=== PATIENT | male | born 1965 | race Caucasian/White ===

== ENCOUNTER 2025-05-03 09:34 | Inpatient (IN) ==
--- NOTE | 2025-05-03 09:40 | Emergency Department Note ---
Impression & Plan Unstable angina, Incidental pulmonary nodule ED Provider Note NAME: BEHZAD FULTON CREDIT AGE: 59 SEX: M : 1965 ARRIVES VIA: Ambulance INFORMANT: Patient, EMS ED PROVIDER(S): Jesse Donato DO CHIEF COMPLAINT: Chest pain HPI: This is a 59-year-old male with the PMHx of CAD s/p PCI (2019) and prior tobacco use disorder presenting to [facility] for further evaluation of chest pain. Patient is accompanied by EMS who provide additional history. patient developed chest pain while driving from [place] this morning. 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 Patient states that he has not had significant chest pain since his last cardiac events. He states this feels very similar. Patient reports central crushing chest pain associated with dyspnea. Started around 0700 and has continued to worsen. EMS reports load ASA, Zofran and morphine prior to arrival. SL NTG had not improved the pain. He was diaphoretic on arrival. Prehospital providers provided load of aspirin as well as sublingual nitroglycerin. His pain continues. Patient states that he had 2 stents placed in 2019 at a hospital in [place]. Patient is compliant with his medications. He denies daily aspirin but does report Plavix use. Patient denies any radiation to the back. His pain does radiate into the left upper extremity. They deny fever or chills. No cough or congestion. Denies chest palpitations. They deny abdominal pain, nausea and vomiting. No urinary complaints. No recent changes in bowel movements. Patient denies recent changes in medications or OTC supplements. Patient offers no other complaints, today. ADDITIONAL HISTORY OBTAINED: Per HPI Chronic Medical/Social Conditions Affecting Care: Per HPI PAST MEDICAL HISTORY: See Below PAST SURGICAL HISTORY: See Below FAMILY HISTORY: See Below SOCIAL HISTORY: See Below HOME MEDICATIONS: See Below ALLERGIES: See Below VITALS: See Below PHYSICAL EXAMINATION: GENERAL: Sitting up in bed, alert, well appearing, well nourished, no distress, non-toxic EYE EXAM: normal conjunctiva. PERRL and EOM's grossly intact. OROPHARYNX: no exudate, no erythema, lips, buccal mucosa, and tongue normal and mucous membranes are moist NECK: supple, no nuchal rigidity, no adenopathy, non-tender LUNGS: Clear to auscultation. Normal chest wall mechanics HEART: no murmurs, regular rate, regular rhythm, Patient has 2+ distal pulses in all 4 extremities. Warm and well-perfused extremities. ABDOMEN: abdomen soft, non-tender, normo-active bowel sounds, no masses, no rebound or guarding. BACK: Back is symmetrical on inspection and there is no deformity, no midline tenderness, no CVA tenderness. SKIN: no rashes and no bruising UPPER EXTREMITIES: upper extremities are grossly normal. LOWER EXTREMITIES: There is some swelling and edema to the left lower extremity but he reports that a few months ago he had a fracture in his ankle. He reports the swelling has been ongoing and has not changed. NEURO EXAM: Normal sensorium, GCS 15, normal speech, no gross weakness of arms, no gross weakness of legs. MEDICAL DECISION MAKING: Differential diagnoses includes but not limited to unstable angina, ACS, dysrhythmia, pericardial effusion, pericarditis, pulmonary embolism, aortic dissection, hepatobiliary disease, pancreatitis, pneumonia, pneumothorax In summary, this is a 59 year old male who presented with chest pain. Differential as above. Nursing notes and pertinent past medical records reviewed. Vital signs reviewed and the patient is borderline hypotensive and hypoxic but otherwise afebrile and HDS. History and presentation revealed significant CAD s/p PCI in 2019. Symptoms are consistent with his index of pain. Physical examination revealed as above. As a result of my initial evaluation, We will plan for cardiac workup with 2 troponins as well as pain control with sublingual nitroglycerin. Plan to obtain chest x-ray further evaluation of cardiopulmonary pathology. Diagnostics interpreted by me include EKG and cardiac monitoring as listed below: -Cardiac Monitoring: An order was placed for continuous cardiac monitoring. The monitor shows a rate of 60-70s with regular rhythm. -ECG: EKG independently interpreted by me reveals normal sinus rhythm at a ventricular rate of [address] segment changes to suggest STEMI. Intervals are within normal limits. Patient completed laboratory studies and imaging. Results independently interpreted by me are CBC showing some leukocytosis, but could be reactive. The patient was managed with pain medications and NTG on arrival. Repeat EKG radiology results as stated below per my review in the radiologist's interpretation: 10 out of 6 independently interpreted by me reveals normal sinus rhythm ventricular rate of [address] segment changes or STEMI. Patient now reporting worsening pain. Will try low-dose of IV fentanyl for further relief. Patient is feeling no improvement. Lipase is minimally elevated, but not 3x upper limit of normal and no epigastric TTP. No changes in LFTs. First troponin is negative. Patient now diaphoretic and still having crushing chest pain. Bedside ultrasound used. Bedside ultrasound independently obtained and interpreted by me. This appears to have normal cardiac function. No large pericardial effusion. No significant RV dilatation. No B signs. Aorta appears unremarkable. Did visualize possible cholelithiasis but no evidence of cholecystitis. Given ongoing pain, diaphoresis and borderline hypotension/hypoxia, will add BNP, d dimer and repeat troponin. Considered PE but felt to be less likely. Will obtain CT PE study for completion. Plan to touch base with cardiology 1105. CT PE study independently interpreted by me is negative for saddle pulmonary embolism. 1140 - Discussed with cardiology regarding my concerns for unstable angina. He is agreeable to see the patient. He questioned aortic dissection. Will discuss further with Dr. Edouard who read CT PE. Given no contrast in the thoracic aorta, will obtain a CTA for further evaluation of dissection at the recommendations of radiology and cardiology. CTA did not demonstrate aortic dissection. I am still concerned of cardiac etiologies. I do believe the patient is likely having unstable angina. Discussed further with cardiology team. They recommended a dose of of IV Toradol which was ordered. They do recommend formal TTE. We will obtain this as the patient is admitted. Patient was discussed with the [facility] hospitalist group. They accepted for admission. Patient will need close telemetry monitoring given concerns for unstable angina. I discussed the patient's workup as well as admission with him. He is agreeable to this and verbally confirms and understands. Consults/Care Managements Discussions: Per MDM ER treatment provided: See above Procedures:none Critical Care: None The chart was completed utilizing [employer]am voice recognition software. Grammatical errors, random word insertions, pronoun errors, and incomplete sentences are an occasional consequence of this system due to software limitations, ambient noise, and hardware issues. Any formal questions or concerns about the content, text, or information contained within the body of this dictation should be directly addressed to the physician for clarification. Past Med/Surg History Problem List (Updated 05/03/25 @ 13:44 by Luis Valle MD) Chest pain, rule out acute myocardial infarction Incidental pulmonary nodule (Acute) Unstable angina (Acute) Medical History (Updated 05/03/25 @ 13:44 by Luis Valle MD) Coronary artery disease Type 2 diabetes mellitus History of myocardial infarction Hereditary spherocytosis Surgical History (Updated 05/03/25 @ 13:44 by Luis Valle MD) History of splenectomy Social History Smoking Status: Former smoker Hx Alcohol Use: Yes Alcohol type: beer Hx Substance Use: No Preferred Language: Belarusian Communication Ability: Effective Pyrometer Temperature Regulator Required: No Beliefs That Will Affect Care: None Current Living Situation: Spouse Other Information That Helps Us Care for You: No Feels Safe at Home: Yes Safety Concerns: Feels Safe At This Time Assistive Devices: Glasses Allergies Allergies Allergy/AdvReac Type Severity Reaction Status Date / Time No Known Allergies Allergy Unverified 05/03/25 11:47 Home Meds Home Medications Medication Instructions Recorded Confirmed atorvastatin 80 mg tablet 80 mg PO HS 05/03/25 05/03/25 clopidogrel 75 mg tablet 75 mg PO DAILY 05/03/25 05/03/25 empagliflozin 25 mg tablet 25 mg PO QAM 05/03/25 05/03/25 (Jardiance) furosemide 20 mg tablet 20 mg PO QAM 05/03/25 05/03/25 isosorbide mononitrate 60 mg 60 mg PO QAM 05/03/25 05/03/25 tablet,extended release 24 hr lisinopril 5 mg tablet 5 mg PO QAM 05/03/25 05/03/25 metformin 1,000 mg tablet 1,000 mg PO BID 05/03/25 05/03/25 metoprolol tartrate 50 mg tablet 50 mg PO BID 05/03/25 05/03/25 nitroglycerin 0.4 mg sublingual 0.4 mg sublingual DIRECTED PRN 05/03/25 05/03/25 tablet Chest Pain Results & Data (ED) Vital Signs Vital Signs - 24 hr 05/03/25 09:40 05/03/25 09:40 05/03/25 09:45 Temperature 36.7 C Temperature Source Temporal Artery Scan Pulse Rate 66 73 Pulse Rhythm Respiratory Rate 16 20 Respiratory Effort / Characteristics Non-Labored Spontaneous Respiratory Depth Normal Respiratory Pattern Regular Blood Pressure 109/74 109/74 Blood Pressure Mean 85 90 Blood Pressure Position Sitting Pulse Oximetry 94 94 Oxygen Delivery Method Nasal Cannula Nasal Cannula Nasal Cannula Oxygen Flow Rate 2 2 Sepsis Recent Fever Within 48 Hours No Sepsis New/Unexplained Change in Mental Status N/A Sepsis Action Taken by Nursing No Action Required 05/03/25 10:00 05/03/25 10:19 05/03/25 10:19 Temperature Temperature Source Pulse Rate 71 59 L 59 L Pulse Rhythm Respiratory Rate 18 20 16 Respiratory Effort / Characteristics Respiratory Depth Respiratory Pattern Blood Pressure 102/70 94/66 L 94/66 L Blood Pressure Mean 76 78 78 Blood Pressure Position Pulse Oximetry 95 96 95 Oxygen Delivery Method Nasal Cannula Nasal Cannula Nasal Cannula Oxygen Flow Rate 2 2 2 Sepsis Recent Fever Within 48 Hours Sepsis New/Unexplained Change in Mental Status Sepsis Action Taken by Nursing 05/03/25 10:20 05/03/25 10:30 05/03/25 11:00 Temperature Temperature Source Pulse Rate 59 L 61 55 L Pulse Rhythm Respiratory Rate 18 19 Respiratory Effort / Characteristics Respiratory Depth Respiratory Pattern Blood Pressure 96/65 L 111/70 Blood Pressure Mean 75 83 Blood Pressure Position Pulse Oximetry 95 95 Oxygen Delivery Method Nasal Cannula Nasal Cannula Oxygen Flow Rate 2 2 Sepsis Recent Fever Within 48 Hours Sepsis New/Unexplained Change in Mental Status Sepsis Action Taken by Nursing 05/03/25 11:00 05/03/25 11:15 05/03/25 11:42 Temperature Temperature Source Pulse Rate 66 56 L 60 Pulse Rhythm Respiratory Rate 16 18 18 Respiratory Effort / Characteristics Respiratory Depth Respiratory Pattern Blood Pressure 111/70 108/71 115/72 Blood Pressure Mean 79 83 86 Blood Pressure Position Pulse Oximetry 97 96 93 Oxygen Delivery Method Nasal Cannula Nasal Cannula Nasal Cannula Oxygen Flow Rate 2 2 2 Sepsis Recent Fever Within 48 Hours Sepsis New/Unexplained Change in Mental Status Sepsis Action Taken by Nursing 05/03/25 11:45 05/03/25 12:00 05/03/25 12:16 Temperature Temperature Source Pulse Rate 60 66 53 L Pulse Rhythm Regular Respiratory Rate 16 12 16 Respiratory Effort / Characteristics Respiratory Depth Respiratory Pattern Blood Pressure 113/68 122/64 Blood Pressure Mean 84 68 Blood Pressure Position Pulse Oximetry 94 96 92 Oxygen Delivery Method Room Air Oxygen Flow Rate Sepsis Recent Fever Within 48 Hours Sepsis New/Unexplained Change in Mental Status Sepsis Action Taken by Nursing 05/03/25 12:30 05/03/25 12:39 05/03/25 13:00 Temperature Temperature Source Pulse Rate 67 51 L 60 Pulse Rhythm Respiratory Rate 19 18 18 Respiratory Effort / Characteristics Respiratory Depth Respiratory Pattern Blood Pressure 109/64 109/64 107/64 Blood Pressure Mean 79 79 69 Blood Pressure Position Pulse Oximetry 95 92 92 Oxygen Delivery Method Room Air Room Air Oxygen Flow Rate Sepsis Recent Fever Within 48 Hours Sepsis New/Unexplained Change in Mental Status Sepsis Action Taken by Nursing Laboratory Data 05/03/25 09:46 05/03/25 09:46 Lab Results 05/03/25 05/03/25 05/03/25 Range/Units 09:45 09:46 11:35 WBC 17.23 H (4.8-10.8) K/ul RBC 5.26 (4.70-6.10) M/uL Hgb 17.3 (14.0-18.0) g/dl POC Hgb 15.0 (14.0-18.0) g/dl Hct 43.9 (42.0-52.0) % POC Hct 44 (42-52) % MCV 83.5 (80.0-100.0) fL MCH 32.0 (25.0-34.0) pg MCHC 37.0 H (32.0-36.0) g/dL RDW Std Deviation 37.7 (36.4-46.3) fL RDW Coeff of Amna 12.5 (11.5-14.5) % Plt Count 597 H (130-400) K/uL MPV 8.7 L (9.4-12.4) fL Immature Gran % (Auto) 1.1 % Neut % (Auto) 78.6 % Lymph % (Auto) 12.9 % Cocke % (Auto) 6.3 % Eos % (Auto) 0.3 % Baso % (Auto) 0.8 % Neut # (Auto) 13.53 H (1.40-6.50) K/uL Lymph # (Auto) 2.23 (1.20-3.40) K/uL Cocke # (Auto) 1.09 H (0.11-0.59) K/uL Eos # (Auto) 0.05 (0.00-0.50) K/uL Baso # (Auto) 0.14 (0.00-0.20) K/uL Immature Gran # (Auto) 0.19 (0.01-0.20) K/uL Hypersegmented Neuts 1+ Toxic Vacuolation 1+ Apple-Sadorus Bodies 1+ Acanthocytes (Spur) 1+ D-Dimer 290 (0-500) ug/L FEU POC Sodium 136 (135-144) mmol/L Sodium 134 L (136-145) mmol/L POC Potassium 4.6 (3.3-5.0) mmol/L Potassium 4.5 (3.5-5.1) mmol/L POC Chloride 101 (101-112) mmol/L Chloride 101 (98-107) mmol/L Carbon Dioxide 24 (21-32) mmol/L POC Total CO2 23 L (24-31) mmol/L Anion Gap 9 (3-11) POC Anion Gap 18.0 (16-25) mmol/L POC BUN 15 (7-18) mg/dl BUN 15 (6-23) mg/dl Creatinine 0.91 (0.6-1.4) mg/dl POC Creatinine 1.0 (0.6-1.3) mg/dl Est Cr Clr Drug Dosing 110.4 ml/min eGFR 96.49 BUN/Creatinine Ratio 16.5 (10-20) Glucose 283 H (70-99(Fasting)) mg/dl POC Glucose (other) 278 H (70-99) mg/dl Calcium 9.1 (8.6-10.3) mg/dl POC Ioniz Calcium Sisi 1.16 (1.12-1.32) mmol/l Phosphorus 3.7 (2.5-4.9) mg/dl Magnesium 2.0 (1.7-2.4) mg/dl Total Bilirubin 1.0 (0.2-1.0) mg/dl AST 18 (13-39) U/L ALT 19 (7-52) U/L Alkaline Phosphatase 96 (34-104) U/L Troponin I High Sens 5.0 6.1 (0-20) pg/ml C-Reactive Protein 0.56 H (0-0.5) mg/dl B-Natriuretic Peptide 21 (0-100) pg/ml Total Protein 7.5 (6.0-8.3) gm/dl Albumin 4.0 (3.4-5.0) gm/dl Globulin 3.5 (2.5-4.0) gm/dl Albumin/Globulin Ratio 1.1 (0.9-2) Lipase 169 H (11-82) U/L Administered Medications Nitroglycerin (Nitroglycerin 2% Ointment 30gm Tube) 1 inch EXT Q6H LIZ Stop: 06/02/25 09:59 Last Admin: 05/03/25 09:53 Dose: 1 inch Documented By: AGUS Discontinued Medications Fentanyl Citrate (Fentanyl Citrate Pf 100 Mcg/2 Ml Vial) 50 mcg IV NOW ONE Stop: 05/03/25 10:11 Last Admin: 05/03/25 10:14 Dose: 50 mcg Documented By: AGUS Fentanyl Citrate (Fentanyl Citrate Pf 100 Mcg/2 Ml Vial) 50 mcg IV NOW ONE Stop: 05/03/25 11:07 Last Admin: 05/03/25 11:12 Dose: 50 mcg Documented By: AGUS Sodium Chloride (Nss) 500 mls @ 125 mls/hr IV .Q4H [facility] Stop: 05/03/25 14:44 Last Admin: 05/03/25 11:00 Dose: 125 mls/hr Documented By: AGUS Ioversol (Optiray 320 125ml) 119 ml IV ONCE ONE Stop: 05/03/25 10:54 Last Admin: 05/03/25 10:54 Dose: 119 ml Documented By: SANGEETHA Ioversol (Optiray 320 125ml) 119 ml IV ONCE ONE Stop: 05/03/25 12:16 Last Admin: 05/03/25 12:15 Dose: 119 ml Documented By: JJ Ketorolac Tromethamine (Ketorolac Tromethamine 15 Mg/Ml Vial) 15 mg IV NOW STA Stop: 05/03/25 12:39 Last Admin: 05/03/25 12:43 Dose: 15 mg Documented By: AGUS Imaging Data Radiologist's Impression: Chest X-Ray 05/03/25 09:40 XR chest 1V portable CLINICAL HISTORY: Chest pain, nonspecific. COMPARISON STUDY: No previous studies for comparison. FINDINGS: No pneumothorax or pleural effusion is present. There is no consolidation to suggest pneumonia. Apparent left lower lung retrocardiac opacity is likely artifactual. The heart is mildly enlarged. There is no evidence for pulmonary edema. There is a possible 9 mm left lower lung nodule. IMPRESSION: 1. Possible 9 mm left lower lung nodule. Chest CT is recommended. 2. Cardiomegaly. No acute cardiopulmonary findings. ACT 112: Positive. There are findings on this exam that require communication between the performing entity and the patient following Patient Test Result Information Act ([place] Act 112) guidelines. Electronically signed by: Thang Edouard M.D. 05/03/2025 10:18 AM Chest CTA 05/03/25 10:35 CT ANGIOGRAM OF THE CHEST CLINICAL HISTORY: Chest pain. Evaluate for pulmonary embolus. COMPARISON STUDY: Chest radiograph performed earlier today. TECHNIQUE: Following the IV administration of 119 cc of Optiray 320, CT angiogram of the chest was performed from the upper abdomen to the thoracic inlet utilizing the pulmonary embolus protocol. Images are reviewed in the axial, sagittal, and coronal planes. 3-D MIPS images are created and assessed. IV contrast was administered without complication. A dose lowering technique was utilized adhering to the principles of ALARA. CT DOSE: 932.35 mGy.cm FINDINGS: No pulmonary emboli are identified. The heart is mildly enlarged. There is no pericardial effusion. Caliber of the thoracic aorta is normal. The thoracic aorta is not opacified. There is no mediastinal lymphadenopathy. No pneumothorax or pleural effusion is present. Lungs are suboptimally assessed due to respiratory motion. The possible left lower lung nodule on chest radiograph from earlier today was artifactual. No consolidation to suggest pneumonia. 4 mm subpleural right middle lobe nodule on image 107 of 235 is likely benign. There are no fractures within the bony thorax. Visualized portions of the upper abdomen demonstrate possible hepatic steatosis. The spleen is not visualized. IMPRESSION: 1. No pulmonary emboli identified. 2. No acute intrathoracic findings. 3. Mild cardiomegaly. 4. 4 mm subpleural right middle lobe nodule. This is likely benign. A chest CT in 6 months to ensure stability is recommended. The possible left lower lung nodule on chest radiograph from earlier today was artifactual. ACT 112: Negative or not required by law. Electronically signed by: Thang Edouard M.D. 05/03/2025 11:17 AM Chest CTA 05/03/25 11:45 CT ANGIOGRAM OF THE CHEST COMBO CLINICAL HISTORY: Chest pain. Evaluate for thoracic aortic dissection. COMPARISON STUDY: Chest radiograph and chest CT performed earlier today. TECHNIQUE: Before and following the IV administration of 119 cc of Optiray 320, CT angiogram of the chest was performed from the thoracic inlet to the upper abdomen utilizing the dissection protocol. Images are reviewed in the axial, sagittal, and coronal planes. 3-D MIPS images are created and assessed. IV contrast was administered without complication. A dose lowering technique was utilized adhering to the principles of ALARA. CT DOSE: 1563.82 mGy.cm FINDINGS: Caliber of the thoracic aorta is normal. There is no intramural hematoma or thoracic aortic dissection. A stent within the left anterior descending artery is present. This stent is suboptimally assessed on this non gated exam but is grossly patent. The heart is mildly enlarged. There is no pericardial effusion. No thoracic lymphadenopathy is present. There are no pulmonary embolus. No pneumothorax or pleural effusion is present. Ground glass opacities favor atelectasis. There is no consolidation to suggest pneumonia. A 4 mm subpleural right middle lobe nodule is likely benign. The spleen is not visualized. IMPRESSION: 1. No thoracic aortic dissection. Normal caliber thoracic aorta. 2. Mild cardiomegaly. 3. No consolidation to suggest pneumonia. ACT 112: Negative or not required by law. Electronically signed by: Thang Edouard M.D. 05/03/2025 12:23 PM Discharge Plan Visit Data Chief Complaint: Chest Pain Stated Complaint: CHEST PAIN ED Provider: Jesse Donato Discharge Problem: Unstable angina, Incidental pulmonary nodule Patient Disposition: Admitted As Inpatient Condition: Fair Discharge Instructions Interventions: ED Discharge Assessment Last Done: 05/03/25 14:55
[2025-05-03] MEDS: NITROGLYCERIN 2% OINTMENT 30GM TUBE EXT SCH (09:53)
--- NOTE | 2025-05-03 10:19 | XRay Report ---
XR chest 1V portable CLINICAL HISTORY: Chest pain, nonspecific. COMPARISON STUDY: No previous studies for comparison. FINDINGS: No pneumothorax or pleural effusion is present. There is no consolidation to suggest pneumo destinee. Apparent left lower lung retrocardiac opacity is likely artifactual. The heart is mildly enlarge d. There is no evidence for pulmonary edema. There is a possible 9 mm left lower lung nodule. IMPRESSION: 1. Possible 9 mm left lower lung nodule. Chest CT is recommended. 2. Cardiomegaly. No acute cardiopulmonary findings. ACT 112: Positive. There are findings on this exam that require communication between the performing entity and the patient following Patient Test Result Information Act ([place] Act 112) guidelines. Electronically signed by: Thang Edouard M.D. 05/03/2025 10:18 AM
[2025-05-03 10:24] LABS: Alanine Aminotransferase 19.0 U/L (7-52); Albumin Globulin Ratio 1.1 (0.9-2); Alkaline Phosphatase 96.0 U/L (34-104); Anion Gap 9.0 (3-11); Bilirubin,Total 1.0 mg/dl (0.2-1.0); Blood Urea Nitrogen 15.0 mg/dl (6-23); Calcium 9.1 mg/dl (8.6-10.3); Carbon Dioxide 24.0 mmol/L (21-32); Chloride 101.0 mmol/L (98-107); Creatinine Clr Calc Pharmacy 110.4 ml/min; Globulin 3.5 gm/dl (2.5-4.0); Glucose 283.0 mg/dl (70-99(Fasting)); Lipase 169.0 U/L (11-82); Magnesium 2.0 mg/dl (1.7-2.4); Potassium 4.5 mmol/L (3.5-5.1); Sodium 134.0 mmol/L (136-145); Total Protein 7.5 gm/dl (6.0-8.3)
--- NOTE | 2025-05-03 10:43 | Electrocardiogram Report ---
Test Reason : Blood Pressure : */* mmHG Vent. Rate : 77 BPM Atrial Rate : 77 BPM P-R Int : 202 ms QRS Dur : 98 ms QT Int : 412 ms P-R-T Axes : 69 53 68 degrees QTcB Int : 466 ms Normal sinus rhythm Normal ECG No previous ECGs available Confirmed by Gerry Alvarez ([id number]) on 05/03/2025 10:43:26 AM Referred By: Confirmed By: Gerry Alvarez
[2025-05-03] MEDS: OPTIRAY 320 125ml IV ONE ×2 (10:54→12:15)
[2025-05-03] MEDS: SODIUM CHLORIDE 0.9% 500 ML IV SCH (11:00)
--- NOTE | 2025-05-03 11:19 | CT Scan Report ---
CT ANGIOGRAM OF THE CHEST CLINICAL HISTORY: Chest pain. Evaluate for pulmonary embolus. COMPARISON STUDY: Chest radiograph performed earlier today. TECHNIQUE: Following the IV administration of 119 cc of Optiray 320, CT angiogram of the chest was pe rformed from the upper abdomen to the thoracic inlet utilizing the pulmonary embolus protocol. Images are reviewed in the axial, sagittal, and coronal planes. 3-D MIPS images are created and assessed. I V contrast was administered without complication. A dose lowering technique was utilized adhering to the principles of ALARA. CT DOSE: 932.35 mGy.cm FINDINGS: No pulmonary emboli are identified. The heart is mildly enlarged. There is no pericardial e ffusion. Caliber of the thoracic aorta is normal. The thoracic aorta is not opacified. There is no me diastinal lymphadenopathy. No pneumothorax or pleural effusion is present. Lungs are suboptimally ass essed due to respiratory motion. The possible left lower lung nodule on chest radiograph from earlier today was artifactual. No consolidation to suggest pneumonia. 4 mm subpleural right middle lobe nodu le on image 107 of 235 is likely benign. There are no fractures within the bony thorax. Visualized po rtions of the upper abdomen demonstrate possible hepatic steatosis. The spleen is not visualized. IMPRESSION: 1. No pulmonary emboli identified. 2. No acute intrathoracic findings. 3. Mild cardiomegaly. 4. 4 mm subpleural right middle lobe nodule. This is likely benign. A chest CT in 6 months to ensure stability is recommended. The possible left lower lung nodule on chest radiograph from earlier today was artifactual. ACT 112: Negative or not required by law. Electronically signed by: Thang Edouard M.D. 05/03/2025 11:17 AM
[2025-05-03 11:24] LABS: Hematocrit (blood only) 43.9 % (42.0-52.0); Hemoglobin 17.3 g/dl (14.0-18.0); Mean Corpuscular Hemoglobin 32.0 pg (25.0-34.0); Mean Corpuscular Volume 83.5 fL (80.0-100.0); Platelet Count 597 K/uL (130-400); RDW Standard Deviation 37.7 fL (36.4-46.3); Red Blood Count 5.26 M/uL (4.70-6.10); White Blood Count 17.23 K/ul (4.8-10.8)
[2025-05-03 11:39] LABS: Acanthocytes 1+; Howell-Jolly Bodies 1+; Hypersegmented Neutrophils 1+; Immature Granulocytes # (auto) 0.19 K/uL (0.01-0.20); Immature Granulocytes % (auto) 1.1 %; Toxic Vacuolation 1+
--- NOTE | 2025-05-03 12:25 | CT Scan Report ---
CT ANGIOGRAM OF THE CHEST COMBO CLINICAL HISTORY: Chest pain. Evaluate for thoracic aortic dissection. COMPARISON STUDY: Chest radiograph and chest CT performed earlier today. TECHNIQUE: Before and following the IV administration of 119 cc of Optiray 320, CT angiogram of the c hest was performed from the thoracic inlet to the upper abdomen utilizing the dissection protocol. Im ages are reviewed in the axial, sagittal, and coronal planes. 3-D MIPS images are created and assesse d. IV contrast was administered without complication. A dose lowering technique was utilized adherin g to the principles of ALARA. CT DOSE: 1563.82 mGy.cm FINDINGS: Caliber of the thoracic aorta is normal. There is no intramural hematoma or thoracic aortic dissection. A stent within the left anterior descending artery is present. This stent is suboptimall y assessed on this non gated exam but is grossly patent. The heart is mildly enlarged. There is no pe ricardial effusion. No thoracic lymphadenopathy is present. There are no pulmonary embolus. No pneumo thorax or pleural effusion is present. Ground glass opacities favor atelectasis. There is no consolid ation to suggest pneumonia. A 4 mm subpleural right middle lobe nodule is likely benign. The spleen i s not visualized. IMPRESSION: 1. No thoracic aortic dissection. Normal caliber thoracic aorta. 2. Mild cardiomegaly. 3. No consolidation to suggest pneumonia. ACT 112: Negative or not required by law. Electronically signed by: Thang Edouard M.D. 05/03/2025 12:23 PM
[2025-05-03] MEDS: KETOROLAC TROMETHAMINE 15 MG/ML VIAL IV STA (12:43)
--- NOTE | 2025-05-03 13:15 | History & Physical Report ---
Date of Service May 03, 2025 Assessment & Plan (1) Hereditary spherocytosis: (2) History of splenectomy: (3) History of myocardial infarction: (4) Chest pain, rule out acute myocardial infarction: (5) Type 2 diabetes mellitus: (6) Coronary artery disease: Plan 59 year old male with history of coronary artery disease presents to the ER with chest pain Chest pain rule out ND High risk story and history however two negative troponins, normal EKG with h ours of chest pain is reassuring but still could be unstable angina especially given lack of alternative diagnosis ASA given by EMS, continue daily along with his usual clopidogrel Continue metoprolol, ISMN and atorvastatin, currently unable to tolerate nitro paste due to hypotension Serial troponin, TTE, Lipid panel and HbA1C with AM labs Currently pain free when seen Consult cardiology #Hypertension No change to home regimen of lisinopril, ISMN, metoprolol and furosemide #T2DM HbA1C with AM labs Continue Jardiance, hold metformin due to IV contrast given Novolog for correction only --Goal BSG Range: Low 110 mg/dL, High 140 mg/dL --Correction Factor: 45 mg/dL/unit No carb ratio --BSGs ACHS if eating, q6h if npo #Leucocytosis / History of splenectomy Suspect this is stress demargination and should normalize by tomorrow, no infective symptoms/signs found VTE Prophylaxis - deferred pending repeat troponins Disposition - observation to PCU Admission and Anticipated Discharge Date Admission Date: May 03, 2025 History of Present Illness Chief Complaint: Chest pain Primary Care Provider: NO PCP Tony Be is a 59 year old male who presents to the ER with chest pain. 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 He then started having chest pressure, not really painful in substernal region, aching feeling which was progressively getting worse. This occurred while driving and after getting to rest area he started getting clammy and it was radiating down left arm which was tingling with a generalized weakness. The pain lasted for an hour while waiting for the ambulance and only started to subside around noon. x2 nitroglycerin did not appear to help. EMS gave aspirin, ondansetron and morphine which he also reports didn't help. The pain is non pleuritic, no worse on exertion and not positional. He reports it felt like his prior heart attacks and angina. Information limited to patient recollection but he reports being hospitalized for angina/ND in 2016, 2017 and 2019 in either [place] or [place], [place]. On the second occasion he received 2 stent to LAD and the 3rd occasion he just has balloon angioplasty. He has a sheet of medications but it is years old and reports no longer being on aspirin and ticagrelor and he is only currently taking clopidogrel for antiplatelet. He reports taking all of his morning medications. His current area supervisor is Dr Murphy from [place], [place]. Prior to this episode he reports he was feeling well. No fever or chills. No respiratory, urinary or gastrointestinal symptoms. No history of reflux or acid taste in his mouth. He notes having diabetes with prior HbA1C 6.4 in January 2025. He report he does not wish me to inform his family at this time. Allergies Allergy/AdvReac Type Severity Reaction Status Date / Time No Known Allergies Allergy Unverified 05/03/25 11:47 Home Medications Medication Instructions Recorded Confirmed Type atorvastatin 80 mg tablet 80 mg PO HS 05/03/25 05/03/25 History clopidogrel 75 mg tablet 75 mg PO DAILY 05/03/25 05/03/25 History empagliflozin 25 mg tablet 25 mg PO QAM 05/03/25 05/03/25 History (Jardiance) furosemide 20 mg tablet 20 mg PO QAM 05/03/25 05/03/25 History isosorbide mononitrate 60 mg 60 mg PO QAM 05/03/25 05/03/25 History tablet,extended release 24 hr lisinopril 5 mg tablet 5 mg PO QAM 05/03/25 05/03/25 History metformin 1,000 mg tablet 1,000 mg PO BID 05/03/25 05/03/25 History metoprolol tartrate 50 mg tablet 50 mg PO BID 05/03/25 05/03/25 History nitroglycerin 0.4 mg sublingual 0.4 mg sublingual DIRECTED PRN 05/03/25 05/03/25 History tablet Chest Pain Past Med/Surg History Problem List (Updated 05/03/25 @ 17:13 by Gerry Alvarez MD) Chest pain Chest pain, rule out acute myocardial infarction Incidental pulmonary nodule (Acute) Unstable angina (Acute) Medical History (Updated 05/03/25 @ 17:13 by Gerry Alvarez MD) Coronary artery disease Type 2 diabetes mellitus History of myocardial infarction Hereditary spherocytosis Surgical History (Updated 05/03/25 @ 13:44 by Luis Valle MD) History of splenectomy Social History Smoking Status: Former smoker Hx Alcohol Use: Yes Alcohol type: beer Hx Substance Use: No Preferred Language: Emir[place] Communication Ability: Effective Shipping Specialist Required: No Beliefs That Will Affect Care: None Current Living Situation: Spouse Other Information That Helps Us Care for You: No Feels Safe at Home: Yes Safety Concerns: Feels Safe At This Time Assistive Devices: Glasses Review of Systems Review of Systems: All systems reviewed & are unremarkable except as noted in HPI & below Physical Exam Constitutional: WD/WN, vitals as above ENMT: external ear and nose normal, oropharynx normal Respiratory: normal respiratory effort, lungs clear to auscultation Cardiovascular: RRR, no murmur, no edema Gastrointestinal (Abdomen): normal bowel sounds, soft, nontender, no hepatosplenomegaly Musculoskeletal: no cyanosis or clubbing, extremities motor strength 5/5 Skin: no rashes, warm and dry Neurologic: moves all extremities and awake; not confused Psychiatric: A+Ox3, euthymic affect Results & Data Results & Data Vital Signs (Past 12 Hours) Vital Signs Temp Pulse Resp BP Pulse Ox O2 Del Method O2 Flow Rate 05/03/25 13:00 60 18 107/64 92 Room Air 05/03/25 12:39 51 L 18 109/64 92 Room Air 05/03/25 12:30 67 19 109/64 95 05/03/25 12:16 53 L 16 92 Room Air 05/03/25 12:00 66 12 122/64 96 05/03/25 11:45 60 16 113/68 94 05/03/25 11:42 60 18 115/72 93 Nasal Cannula 2 05/03/25 11:15 56 L 18 108/71 96 Nasal Cannula 2 05/03/25 11:00 66 16 111/70 97 Nasal Cannula 2 05/03/25 11:00 55 L 19 111/70 95 Nasal Cannula 2 05/03/25 10:30 61 18 96/65 L 95 Nasal Cannula 2 05/03/25 10:20 59 L 05/03/25 10:19 59 L 16 94/66 L 95 Nasal Cannula 2 05/03/25 10:19 59 L 20 94/66 L 96 Nasal Cannula 2 05/03/25 10:00 71 18 102/70 95 Nasal Cannula 2 05/03/25 09:45 73 20 109/74 94 Nasal Cannula 2 05/03/25 09:40 Nasal Cannula 2 05/03/25 09:40 36.7 C 66 16 109/74 94 Nasal Cannula Laboratory Results Abnormal lab results 05/03/25 05/03/25 05/03/25 Range/Units 09:45 09:46 14:10 WBC 17.23 H (4.8-10.8) K/ul MCHC 37.0 H (32.0-36.0) g/dL Plt Count 597 H (130-400) K/uL MPV 8.7 L (9.4-12.4) fL Neut # (Auto) 13.53 H (1.40-6.50) K/uL Potter # (Auto) 1.09 H (0.11-0.59) K/uL Sodium 134 L (136-145) mmol/L POC Total CO2 23 L (24-31) mmol/L Glucose 283 H (70-99(Fasting)) mg/dl POC Glucose (70-99) mg/dl POC Glucose (other) 278 H (70-99) mg/dl Troponin I High Sens (0-20) pg/ml C-Reactive Protein 0.56 H (0-0.5) mg/dl Lipase 169 H (11-82) U/L Ur Specific [place] > 1.045 H (1.000-1.030) Urine Glucose (UA) 3+ H (Negative) Urine Ketones 1+ H (Negative) Diagnostic Findings XR chest 1V portable CLINICAL HISTORY: Chest pain, nonspecific. COMPARISON STUDY: No previous studies for comparison. FINDINGS: No pneumothorax or pleural effusion is present. There is no consolidation to suggest pneumonia. Apparent left lower lung retrocardiac opacity is likely artifactual. The heart is mildly enlarged. There is no evidence for pulmonary edema. There is a possible 9 mm left lower lung nodule. IMPRESSION: 1. Possible 9 mm left lower lung nodule. Chest CT is recommended. 2. Cardiomegaly. No acute cardiopulmonary findings. Medications Administered ER Medications Given: Nitroglycerin 1 inch paste Fentanyl 50 mcg IV Normal saline 500ml @ 125ml/hr Fentanyl 50 mcg IV Toradol 15mg IV ECG Rate (beats per minute): 77 Rhythm: normal sinus Findings: no acute ischemic change Comparison ECG Date: no prior available Code Status & VTE Plan Code Status DNR/DNI per patient wishes VTE Prophylaxis Plan VTE Prophylaxis will be ordered: Yes PG Care Time/CCT Total # of Minutes Spent Total Time Spent with Patient: Total time spent is greater than 50% in coordination of care (as documented) at patient's floor/unit and/or counseling patient: Coding Level of Care Code 37142 INT INP/OBS CARE 3/75MIN Diagnoses Hereditary spherocytosis D58.0 History of splenectomy Z90.81 History of myocardial infarction I25.2 Chest pain, rule out acute myocardial infarction R07.9 Type 2 diabetes mellitus E11.9 Coronary artery disease I25.10
[2025-05-03 14:24] LABS: Appearance Urine Clear (Clear); Glucose Urine UA 3+ (Negative)
[2025-05-03] MEDS ORDERED: NITROGLYCERIN SL 0.4 MG/TAB TAB SL PRN (15:22)
[2025-05-03] MEDS ORDERED: GLUCOSE 40% GEL 15 GM TUBE PO PRN (15:22)
[2025-05-03] MEDS ORDERED: GLUCAGON FOR INJ 1 MG VIAL SQ PRN (15:22)
[2025-05-03] MEDS ORDERED: DEXTROSE 50% 50 ML SYRINGE IV PRN (15:22)
[2025-05-03] MEDS ORDERED: GLUCOSE 10 TAB/TUBE PO PRN (15:22)
[2025-05-03] MEDS ORDERED: CARBOHYDRATES FOR HYPOGLYCEMIA PO PRN (15:22)
--- NOTE | 2025-05-03 16:06 | XCELERA ---
[id number]
[2025-05-03] MEDS: INSULIN ASPART PER UNIT CHARGE SC SCH (17:03)
--- NOTE | 2025-05-03 17:16 | Cardiology Consultation ---
Date of Consultation May 03, 2025 Assessment & Plan (1) Chest pain: (2) Coronary artery disease: Plan 1. Chest pain: Unclear etiology. He does not appear to be suffering from an acute coronary syndrome. There were no objective findings for cardiac ischemia or ACS. No pulmonary embolus or aortic dissection. There is a pleuritic component to his symptoms and it is possible he has an element of pericarditis. Anti-inflammatory such as nonsteroidals could be tried them. For symptom relief. Despite a history of myocardial infarction and risk factors for additional events, I do not think he requires any additional cardiac testing in the absence of some objective findings such as elevated biomarkers or change on his EKG. 2. Coronary artery disease: Remote history of myocardial infarction. Preserved LV systolic function without regional wall motion abnormalities. It seems he has been maintained on a secondary regimen to consist of Plavix, metoprolol and high-dose atorvastatin. This can be continued. History of Present Illness Reason for Consultation: Chest pain Requesting Physician: Tori Attending Physician: Luis Valle MD History of Present Illness The patient is a 59-year-old gentleman with a history of coronary artery disease having previously undergone percutaneous intervention to the LAD around 2017. 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 He described this as precordial in nature. There is no significant radiation to the arms back or jaw. The pain itself is fairly well localized to a small area of the sternum. There was a pleuritic component. Some mild dyspnea associated with the symptoms primarily due to splinting. He had some diaphoresis as well. He reported some episodes of diarrhea this morning prior to this episode. He felt that these symptoms were similar to that which he experienced prior to his LAD stent. He stopped at rest up in some and EMS. He took 2 nitroglycerin of his own without relief of symptoms. He was placed on oxygen, given aspirin and transported to our hospital for an evaluation. Initial EKG was unremarkable. Additional cardiac biomarker was unremarkable. He underwent CT scanning to exclude pulmonary embolus and aortic dissection. Neither was found. Repeat EKGs were also normal. Repeat troponin was also normal. The patient continued to have symptoms and developed a headache as well. Allergies Allergy/AdvReac Type Severity Reaction Status Date / Time No Known Allergies Allergy Unverified 05/03/25 11:47 Home Medications Medication Instructions Recorded Confirmed Type atorvastatin 80 mg tablet 80 mg PO HS 05/03/25 05/03/25 History clopidogrel 75 mg tablet 75 mg PO DAILY 05/03/25 05/03/25 History empagliflozin 25 mg tablet 25 mg PO QAM 05/03/25 05/03/25 History (Jardiance) furosemide 20 mg tablet 20 mg PO QAM 05/03/25 05/03/25 History isosorbide mononitrate 60 mg 60 mg PO QAM 05/03/25 05/03/25 History tablet,extended release 24 hr lisinopril 5 mg tablet 5 mg PO QAM 05/03/25 05/03/25 History metformin 1,000 mg tablet 1,000 mg PO BID 05/03/25 05/03/25 History metoprolol tartrate 50 mg tablet 50 mg PO BID 05/03/25 05/03/25 History nitroglycerin 0.4 mg sublingual 0.4 mg sublingual DIRECTED PRN 05/03/25 05/03/25 History tablet Chest Pain Patient History Medical History (Updated 05/03/25 @ 17:13 by Gerry Alvarez MD) Coronary artery disease Type 2 diabetes mellitus History of myocardial infarction Hereditary spherocytosis Surgical History (Updated 05/03/25 @ 13:44 by Luis Valle MD) History of splenectomy Social History Smoking Status: Former smoker Hx Alcohol Use: Yes Alcohol type: beer Hx Substance Use: No Preferred Language: Solomon Islander Communication Ability: Effective Interactive Media Specialist Required: No Beliefs That Will Affect Care: None Current Living Situation: Spouse Other Information That Helps Us Care for You: No Feels Safe at Home: Yes Safety Concerns: Feels Safe At This Time Assistive Devices: Glasses Review of Systems Review of Systems: Per HPI. No recent fevers or chills. No symptoms yesterday. Physical Exam Physical Exam: The patient is alert and oriented. Mood and affect appeared normal. He answered all questions appropriately. Uncomfortable. HEENT: Pupils are equal and reactive to light and accommodation. Extraocular movements are intact. The sclerae are anicteric. Neuro: Cranial nerves intact Lungs: Clear to auscultation bilaterally. He has good air movement without use of accessory muscles. No rales wheezes or rhonchi. Cardiac: Heart demonstrates a regular rate and rhythm. Normal S1 and S2. No murmurs on examination. Pulses: The patient has palpable radial pulses bilaterally that are equal in intensity Extremities: There was no evidence of hypoperfusion. There is no cyanosis or clubbing. There is no edema. Skin: I did not appreciate any rashes on examination today. Results & Data Vital Signs (Past 12 Hours) Vital Signs Temp Pulse Pulse Resp BP BP Pulse Ox 05/03/25 15:33 36.5 C 82 18 117/74 94 05/03/25 14:20 61 05/03/25 14:15 87 17 98/60 L 94 05/03/25 14:00 62 16 98/60 L 92 05/03/25 13:45 62 16 102/68 92 05/03/25 13:30 82 18 117/87 94 05/03/25 13:15 55 L 16 97/59 L 94 05/03/25 13:00 60 18 107/64 92 05/03/25 12:39 51 L 18 109/64 92 05/03/25 12:30 67 19 109/64 95 05/03/25 12:16 53 L 16 92 05/03/25 12:00 66 12 122/64 96 05/03/25 11:45 60 16 113/68 94 05/03/25 11:42 60 18 115/72 93 05/03/25 11:15 56 L 18 108/71 96 05/03/25 11:00 66 16 111/70 97 05/03/25 11:00 55 L 19 111/70 95 05/03/25 10:30 61 18 96/65 L 95 05/03/25 10:20 59 L 05/03/25 10:19 59 L 16 94/66 L 95 05/03/25 10:19 59 L 20 94/66 L 96 05/03/25 10:00 71 18 102/70 95 05/03/25 09:45 73 20 109/74 94 05/03/25 09:40 05/03/25 09:40 36.7 C 66 16 109/74 94 O2 Del Method O2 Flow Rate 05/03/25 15:33 Room Air 05/03/25 14:20 05/03/25 14:15 Room Air 05/03/25 14:00 Room Air 05/03/25 13:45 Room Air 05/03/25 13:30 Room Air 05/03/25 13:15 Room Air 05/03/25 13:00 Room Air 05/03/25 12:39 Room Air 05/03/25 12:30 05/03/25 12:16 Room Air 05/03/25 12:00 05/03/25 11:45 05/03/25 11:42 Nasal Cannula 2 05/03/25 11:15 Nasal Cannula 2 05/03/25 11:00 Nasal Cannula 2 05/03/25 11:00 Nasal Cannula 2 05/03/25 10:30 Nasal Cannula 2 05/03/25 10:20 05/03/25 10:19 Nasal Cannula 2 05/03/25 10:19 Nasal Cannula 2 05/03/25 10:00 Nasal Cannula 2 05/03/25 09:45 Nasal Cannula 2 05/03/25 09:40 Nasal Cannula 2 05/03/25 09:40 Nasal Cannula Laboratory Results Abnormal Lab Results 05/03/25 05/03/25 05/03/25 09:45 09:46 11:35 WBC 17.23 H RBC 5.26 Hgb 17.3 POC Hgb 15.0 Hct 43.9 POC Hct 44 MCV 83.5 MCH 32.0 MCHC 37.0 H RDW Std Deviation 37.7 RDW Coeff of Amna 12.5 Plt Count 597 H MPV 8.7 L Immature Gran % (Auto) 1.1 Neut % (Auto) 78.6 Lymph % (Auto) 12.9 Stokes % (Auto) 6.3 Eos % (Auto) 0.3 Baso % (Auto) 0.8 Neut # (Auto) 13.53 H Lymph # (Auto) 2.23 Stokes # (Auto) 1.09 H Eos # (Auto) 0.05 Baso # (Auto) 0.14 Immature Gran # (Auto) 0.19 Hypersegmented Neuts 1+ Toxic Vacuolation 1+ Apple-Verlot Bodies 1+ Acanthocytes (Spur) 1+ ESR D-Dimer 290 POC Sodium 136 Sodium 134 L POC Potassium 4.6 Potassium 4.5 POC Chloride 101 Chloride 101 Carbon Dioxide 24 POC Total CO2 23 L Anion Gap 9 POC Anion Gap 18.0 POC BUN 15 BUN 15 Creatinine 0.91 POC Creatinine 1.0 Est Cr Clr Drug Dosing 110.4 eGFR 96.49 BUN/Creatinine Ratio 16.5 Glucose 283 H POC Glucose POC Glucose (other) 278 H Calcium 9.1 POC Ioniz Calcium Sisi 1.16 Phosphorus 3.7 Magnesium 2.0 Total Bilirubin 1.0 AST 18 ALT 19 Alkaline Phosphatase 96 Troponin I High Sens 5.0 6.1 C-Reactive Protein 0.56 H B-Natriuretic Peptide 21 Total Protein 7.5 Albumin 4.0 Globulin 3.5 Albumin/Globulin Ratio 1.1 Lipase 169 H Urine Color Urine Appearance Urine pH Ur Specific [place] Urine Protein Urine Glucose (UA) Urine Ketones Urine Blood Urine Nitrite Urine Bilirubin Urine Urobilinogen Ur Leukocyte Esterase Urine Comment 05/03/25 05/03/25 05/03/25 14:10 16:10 16:43 WBC RBC Hgb POC Hgb Hct POC Hct MCV MCH MCHC RDW Std Deviation RDW Coeff of Amna Plt Count MPV Immature Gran % (Auto) Neut % (Auto) Lymph % (Auto) Stokes % (Auto) Eos % (Auto) Baso % (Auto) Neut # (Auto) Lymph # (Auto) Stokes # (Auto) Eos # (Auto) Baso # (Auto) Immature Gran # (Auto) Hypersegmented Neuts Toxic Vacuolation Apple-Verlot Bodies Acanthocytes (Spur) ESR 5 D-Dimer POC Sodium Sodium POC Potassium Potassium POC Chloride Chloride Carbon Dioxide POC Total CO2 Anion Gap POC Anion Gap POC BUN BUN Creatinine POC Creatinine Est Cr Clr Drug Dosing eGFR BUN/Creatinine Ratio Glucose POC Glucose 293 H POC Glucose (other) Calcium POC Ioniz Calcium Sisi Phosphorus Magnesium Total Bilirubin AST ALT Alkaline Phosphatase Troponin I High Sens C-Reactive Protein B-Natriuretic Peptide Total Protein Albumin Globulin Albumin/Globulin Ratio Lipase Urine Color Yellow Urine Appearance Clear Urine pH 5.5 Ur Specific [place] > 1.045 H Urine Protein Negative Urine Glucose (UA) 3+ H Urine Ketones 1+ H Urine Blood Negative Urine Nitrite Negative Urine Bilirubin Negative Urine Urobilinogen Negative Ur Leukocyte Esterase Negative Urine Comment Diagnostic Findings Chest CTA did not demonstrate pulmonary embolus or aortic dissection. No acute pathology noted. Echocardiogram demonstrated preserved LV systolic function without regional wall motion abnormality or significant valvular heart disease PG Care Time/CCT Total # of Minutes Spent Total Time Spent with Patient: Total time spent is greater than 50% in coordination of care (as documented) at patient's floor/unit and/or counseling patient: Coding Level of Care Code 09676 IN/OBS CONSULT LVL 4,60M Diagnoses Chest pain R07.9 Coronary artery disease I25.10
[2025-05-03] MEDS ORDERED: ENOXAPARIN 1 MG/KG SQ ONE (18:44)
[2025-05-03] MEDS: ENOXAPARIN 100 MG/1ML SYR SQ ONE (19:53)
[2025-05-03] MEDS: METOPROLOL TARTRATE 50 MG TAB PO SCH (19:59)
[2025-05-03] MEDS: ATORVASTATIN 40 MG TAB PO SCH (19:59)
[2025-05-04] MEDS: HEPARIN SOD (PORCINE) 1000 UNIT/ML IV ONE (02:11)
[2025-05-04] MEDS: HEPARIN 25000 UNIT/500 ML D5W 25,000 UNITS/500 ML BAG IV SCH ×2 (02:11→21:03)
[2025-05-04] MEDS: Heparin IV Adult Wt-Based Standard w/ INITIAL Bolus Protocol IV STA (02:11)
[2025-05-04] MEDS ORDERED: Nursing to Pharmacy Communication SCH (02:15)
--- NOTE | 2025-05-04 06:15 | Communication Note ---
Date of Service: May 03, 2025 Troponin increased to 153.6. This is still a small rise compared to degree of symptoms however NSTEMI is the most likely diagnosis in absence of alternative diagnosis and high risk factors. Discussed with Dr Alvarez and Lovenox 1mg/kg added for one dose pending repeat troponins overnight. Patient is mostly pain free at this time. TTE reassuring.
[2025-05-04] MEDS: INSULIN ASPART PER UNIT CHARGE SC SCH (06:31)
[2025-05-04 06:42] LABS: Hematocrit (blood only) 45.8 % (42.0-52.0); Hemoglobin 17.1 g/dl (14.0-18.0); Immature Granulocytes # (auto) 0.21 K/uL (0.01-0.20); Immature Granulocytes % (auto) 1.4 %; Mean Corpuscular Hemoglobin 32.1 pg (25.0-34.0); Mean Corpuscular Volume 85.9 fL (80.0-100.0); Platelet Count 544 K/uL (130-400); RDW Standard Deviation 39.5 fL (36.4-46.3); Red Blood Count 5.33 M/uL (4.70-6.10); White Blood Count 15.55 K/ul (4.8-10.8)
[2025-05-04] MEDS ORDERED: Heparin IV Adult Wt-Based Standard *NO* INITIAL Bolus Protocol IV ONE (07:00)
[2025-05-04 07:03] LABS: Anion Gap 8.0 (3-11); Blood Urea Nitrogen 20.0 mg/dl (6-23); Calcium 9.1 mg/dl (8.6-10.3); Carbon Dioxide 29.0 mmol/L (21-32); Chloride 100.0 mmol/L (98-107); Cholesterol 185.0 mg/dl (0-200); Creatinine Clr Calc Pharmacy 97.2 ml/min; Glucose 150.0 mg/dl (70-99(Fasting)); HDL Cholesterol 58.0 mg/dl; Magnesium 2.1 mg/dl (1.7-2.4); Potassium 4.1 mmol/L (3.5-5.1); Sodium 137.0 mmol/L (136-145); Triglycerides 124.0 mg/dl (0-150)
[2025-05-04 07:56] LABS: Hemoglobin A1C 8.1 % (4.5-5.6)
[2025-05-04] MEDS ORDERED: HEPARIN 25000 UNIT/500 ML D5W 25,000 UNITS/500 ML BAG IV SCH (08:00)
[2025-05-04] MEDS ORDERED: MoRPHine SULFATE 4 MG/ML 1 ML CARP\\VIAL IV PRN (08:32)
[2025-05-04] MEDS: ASPIRIN 81 MG ECTAB PO SCH (08:53)
[2025-05-04] MEDS: ENOXAPARIN 100 MG/1ML SYR SQ SCH (08:53)
[2025-05-04] MEDS: CLOPIDOGREL BISULFATE 75 MG TAB PO SCH (08:54)
[2025-05-04] MEDS: ISOSORBIDE MONO EXTENDED REL 60 MG TABCR PO SCH (08:54)
[2025-05-04] MEDS: EMPAGLIFLOZIN 25 MG TAB PO SCH (08:54)
[2025-05-04] MEDS: FUROSEMIDE 20 MG TAB PO SCH (08:54)
[2025-05-04 09:24] LABS: Creatine Kinase 562.0 U/L (30-223)
[2025-05-04 10:06] LABS: Chlamydia pneumoniae PCR Not Detected (NotDetected); Coronavirus 229E PCR Not Detected (NotDetected); Coronavirus CoV-2 (COVID19)PCR Not Detected (NotDetected); Coronavirus HKU1 PCR Not Detected (NotDetected); Coronavirus NL63 PCR Not Detected (NotDetected); Coronavirus OC43PCR Not Detected (NotDetected); Human Metapneumovirus PCR Not Detected (NotDetected); Parainfluenza Virus 1 PCR Not Detected (NotDetected); Parainfluenza Virus 2 PCR Not Detected (NotDetected); Parainfluenza Virus 3 PCR Not Detected (NotDetected); Parainfluenza Virus 4 PCR Not Detected (NotDetected); Respiratory Syncytial VirusPCR Not Detected (NotDetected); Rhinovirus/Enterovirus PCR Not Detected (NotDetected)
--- NOTE | 2025-05-04 10:10 | Electrocardiogram Report ---
Test Reason : Blood Pressure : */* mmHG Vent. Rate : 65 BPM Atrial Rate : 65 BPM P-R Int : 196 ms QRS Dur : 92 ms QT Int : 418 ms P-R-T Axes : 62 47 56 degrees QTcB Int : 434 ms Normal sinus rhythm Normal ECG When compared with ECG of 03-May-2025 09:38, No significant change was found Confirmed by Sima Brantley (Jassi) on 05/04/2025 10:09:41 AM Referred By: REFERRED SELF Confirmed By: Sima Brantley
--- NOTE | 2025-05-04 10:34 | Cardiology Progress Note ---
Date of Service May 04, 2025 Assessment & Plan (1) Non-STEMI (non-ST elevated myocardial infarction): Plan: By strict his EKG criteria he does not meet criteria for a STEMI because is only about a half a millimeter of ST elevation but I think on his echo he also has a wall motion abnormality with the anteroapex and perhaps a lateral wall which would go along with the LAD. (2) Coronary artery disease: (3) Type 2 diabetes mellitus: (4) History of myocardial infarction: (5) Hypercholesterolemia: Plan Anticipate he will have left heart catheterization within the next 24 hours. If he develops recurrent chest discomfort after receiving the IV beta-priscilla today, he may need to have catheterization sooner rather than later. Will convert the Lovenox over to IV heparin overnight. The case was discussed with Dr. Ribeiro and we anticipate will try to do his catheterization first thing in the morning. His LDL is currently not at goal we need to have an LDL less than 50-60 particularly given recurrent GA and disease. Diabetes control is also essential. The patient should be able to eat today and then keep him n.p.o. after midnight again. If he develops further chest discomfort today please let me know as soon as possible. Thank you for allowing me to participate in his care. After discharge he will need to follow-up with his supervisor microwave in [place]. Admission and Anticipated Discharge Date Admission Date: May 03, 2025 Subjective The patient is a 59-year-old gentleman with a history of coronary artery disease having previously undergone percutaneous intervention to the LAD around 2018 in setting of GA. 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 He described this as precordial in nature. There is no significant radiation to the arms back or jaw. The pain itself is fairly well localized to a small area of the sternum. CP described as 5/10 when started yesterday-described as worse than prior CP and the diaphoresis is new. Some mild dyspnea associated with the symptoms primarily due to splinting. He had some diaphoresis as well. He reported some episodes of diarrhea this morning prior to this episode. He felt that these symptoms were similar to that which he experienced prior to his LAD stent. He stopped at rest up in some and EMS. He took 2 nitroglycerin of his own without relief of symptoms. He was placed on oxygen, given aspirin and transported to our hospital for an evaluation. Initial EKG was unremarkable. Additional cardiac biomarker was unremarkable. He underwent CT scanning to exclude pulmonary embolus and aortic dissection. Neither was found. His old prox LAD stent is seen, there is some CAC in the vessels. Initial ECG unremarkable-subsequent ECGs with ongoing CP show very subtle ST elevation in lateral leads, no obvious reciprocol ST depression noted. However Troponin at midnight 2500, and this am 5100. At the time of my exam, he reports never being completely CP free-currently reports CP 1-12/03. Will likely need [facility]. Will discuss with Dr. Ribeiro neon sign erector for lab nurse and determine the timing on the cath particularly since he received Lovenox today. Reviewed CT chest showing prox LAD stent also RCA CAC noted. It is impossible to r/o obstructive CAD with this type of CT scan. Review of Systems Review of Systems: All systems reviewed & are unremarkable except as noted in HPI & below Physical Exam Physical Exam: Appears tired AAO x 3 Respiratory: normal respiratory effort, lungs clear to auscultation Cardiovascular: RRR, no murmur, no edema S4 noted Results & Data Vital Signs (Past 12 Hours) Vital Signs Temp Pulse Resp BP Pulse Ox O2 Del Method 05/04/25 08:05 36.5 C 66 23 126/77 95 Room Air 05/04/25 03:09 36.4 C L 63 18 120/70 95 Room Air 05/03/25 23:22 36.5 C 61 16 119/71 94 Room Air Laboratory Results Abnormal lab results 05/03/25 05/03/25 05/03/25 Range/Units 09:46 14:10 16:10 WBC 17.23 H (4.8-10.8) K/ul MCHC 37.0 H (32.0-36.0) g/dL Plt Count 597 H (130-400) K/uL MPV 8.7 L (9.4-12.4) fL Neut # (Auto) 13.53 H (1.40-6.50) K/uL [place] # (Auto) 1.09 H (0.11-0.59) K/uL Immature Gran # (Auto) (0.01-0.20) K/uL Glucose (70-99(Fasting)) mg/dl POC Glucose 293 H (70-99) mg/dl Hemoglobin A1c (4.5-5.6) % Total Creatine Kinase (30-223) U/L Troponin I High Sens (0-20) pg/ml C-Reactive Protein 0.56 H (0-0.5) mg/dl Ur Specific [place] > 1.045 H (1.000-1.030) Urine Glucose (UA) 3+ H (Negative) Urine Ketones 1+ H (Negative) 05/03/25 05/03/25 05/04/25 Range/Units 17:34 20:01 00:08 WBC (4.8-10.8) K/ul MCHC (32.0-36.0) g/dL Plt Count (130-400) K/uL MPV (9.4-12.4) fL Neut # (Auto) (1.40-6.50) K/uL [place] # (Auto) (0.11-0.59) K/uL Immature Gran # (Auto) (0.01-0.20) K/uL Glucose (70-99(Fasting)) mg/dl POC Glucose 174 H (70-99) mg/dl Hemoglobin A1c (4.5-5.6) % Total Creatine Kinase (30-223) U/L Troponin I High Sens 156.3 H* D 2589.3 H* D (0-20) pg/ml C-Reactive Protein (0-0.5) mg/dl Ur Specific [place] (1.000-1.030) Urine Glucose (UA) (Negative) Urine Ketones (Negative) 05/04/25 05/04/25 05/04/25 Range/Units 06:01 06:19 08:48 WBC 15.55 H (4.8-10.8) K/ul MCHC 37.3 H (32.0-36.0) g/dL Plt Count 544 H (130-400) K/uL MPV 9.3 L (9.4-12.4) fL Neut # (Auto) 10.10 H (1.40-6.50) K/uL [place] # (Auto) 1.53 H (0.11-0.59) K/uL Immature Gran # (Auto) 0.21 H (0.01-0.20) K/uL Glucose 150 H (70-99(Fasting)) mg/dl POC Glucose 171 H (70-99) mg/dl Hemoglobin A1c 8.1 H (4.5-5.6) % Total Creatine Kinase 562 H (30-223) U/L Troponin I High Sens 5183.0 H* D (0-20) pg/ml C-Reactive Protein 0.84 H (0-0.5) mg/dl Ur Specific [place] (1.000-1.030) Urine Glucose (UA) (Negative) Urine Ketones (Negative) Diagnostic Findings ECHO shows normal LV function there is an area of anteroapical and lateral hypokinesis ECG Additional Comments: as noted above
--- NOTE | 2025-05-04 11:13 | Electrocardiogram Report ---
Test Reason : Blood Pressure : */* mmHG Vent. Rate : 54 BPM Atrial Rate : 54 BPM P-R Int : 190 ms QRS Dur : 92 ms QT Int : 434 ms P-R-T Axes : 51 43 39 degrees QTcB Int : 411 ms Sinus bradycardia with sinus arrhythmia Slight ST elevation lateral leads I and AVL noted; cannot r/o UT Otherwise normal ECG When compared with ECG of 03-May-2025 10:06, (unconfirmed) the ST elevation is not previously noted on ECG Confirmed by Sima Brantley (Jassi) on 05/04/2025 11:13:12 AM Referred By: REFERRED SELF Confirmed By: Sima Brantley
--- NOTE | 2025-05-04 11:14 | Electrocardiogram Report ---
Test Reason : Blood Pressure : */* mmHG Vent. Rate : 62 BPM Atrial Rate : 62 BPM P-R Int : 188 ms QRS Dur : 100 ms QT Int : 414 ms P-R-T Axes : 67 47 56 degrees QTcB Int : 420 ms Normal sinus rhythm Nonspecific ST and T wave abnormality Abnormal ECG When compared with ECG of 03-May-2025 10:24, (unconfirmed) No significant change was found Confirmed by Sima Brantley (Jassi) on 05/04/2025 11:14:19 AM Referred By: REFERRED SELF Confirmed By: Sima Brantley
[2025-05-04] MEDS: METOPROLOL TARTRATE 1 MG/ML VIAL IV STA (11:44)
--- NOTE | 2025-05-04 16:27 | Hospitalist Progress Note ---
Date of Service May 04, 2025 Assessment & Plan (1) Chest pain, rule out acute myocardial infarction: Plan: cf., Troponin-I #1 5.0 pg/mL (05/03/2025, 9:46am). cf., Troponin-I #2 6.1 pg/mL (05/03/2025, 11:35am). cf., Troponin-I #3 156.3 pg/mL (05/03/2025, 5:34pm). cf., Troponin-I #4 2,589.3 pg/mL (05/04/2025, 12:08am). cf., Troponin-I #5 5,183.0 pg/mL (05/04/2025, 6:19am). cf., Troponin-I #6 (05/04/2025, 4:43pm). cf., EKG #1 (05/03/2025, 9:38am): NSR @ 77, TN 202, QTC 466, no ST elevation; no ST depression; + TWI in aVL; no q waves (by my review). cf., EKG #2 (05/03/2025, 10:06am): NSR @ 65, TN 196, QTC 434, no ST elevation; no ST depression; no TWI; no q waves (by my review). cf., EKG #3 (05/03/2025, 10:24am): sinus christine @ 54, TN 190, QTC 411, [address] elevation in I, aVL; no ST depression; no TWI; no q waves (by my review). cf., EKG #4 (05/04/2025, 5:43am): NSR @ 62, TN 188, QTC 420, no ST elevation; no ST depression; no TWI; no q waves (by my review). cf., TTE (05/03/2025, 1:04pm): 1. LVEF 55-60%. LV wall motion normal. 2. RV normal size and function. 3. LA/RA sizes normal. 4. No . No AR. 5. PV not well visualized. 6. No MR. 7. Mild TR with RVSP 30-40 mm Hg. 8. Aortic root normal size. IVC mildly dilated. 9. No pericardial effusion. (as per CARDS Dr. Gerry Alvarez). While the [address] elevation in I, aVL (as noted on 05/03/2025, 10:24am EKG #3) has resolved, and while TTE (05/03/2025, 1:04pm) reveals no LV wall motion abnormalities to suggest acute myocardial ischemia, patient's troponin-I levels continue to increase, not having yet reached a peak/plateau, and patient still reports a constant ache in the substernal region, rated a 1 (out of 10 point intensity scale). Hence, concern for acute lateral wall STEMI remains. To this end, patient continues with desk monitor, serial troponin level testing (to identify a peak/plateau level), CHITRA (morphine, O2, NTG, ASA), plavix 75mg PO daily, high- intensity statin dose of atorvastatin 80mg PO qhs, metoprolol tartrate 50mg PO bid, isosorbide mononitrate 60mg PO qam, and lisinopril 5mg PO qam. In addition, patient initially started with lovenox 100mg (1mg/kg SQ q12) SQ x 1 dose (05/03/2025, 7:53pm) in [facility] ER. Patient will transition to heparin infusion (05/04/2025, 7:00pm) in [facility] Tele bed #[id number], as patient awaits cardiac catheterization with Interventional CARDS Dr. Houston Ribeiro in the 05/05/2025 am. (2) History of myocardial infarction: Plan: CAD s/p acute NSTEMI #1 (2017), no intervention, s/p acute NSTEMI #2 (2018), s/p stents x 2 in LAD, s/p acute NSTEMI #3 (2019), no intervention, now on home- scheduled atorvastatin 80mg PO qhs and plavix 75mg PO daily. 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 Continue ASA 81mg PO daily while [facility], along with patient's home-scheduled atorvastatin 80mg PO qhs and plavix 75mg PO daily, to provide secondary prophylaxis against CAD. (3) Type 2 diabetes mellitus: Plan: Non-insulin dependent DM2 x 4 years with long-term glycemic control poor as manifested by HbA1c 8.1% (05/04/2025, 6:19am), on home-scheduled metformin 1000mg PO bid and empagliflozin 25mg PO qam. Hold OFF home-scheduled metformin 1000mg PO bid while patient remains in [facility] in order to avoid the potential development of post-IV contrast nephropathy as patient has already undergone CTA chest #1 (05/03/2025, 10:35am and CTA chest (05/03/2025, 11:45am), and awaits cardiac catheterization (during which procedure patient will be exposed to IV contrast) in the 05/05/2025 am. In fact, patient should not resume his home-scheduled metformin 1000mg PO bid for at least 72 hours from his last exposure to IV contrast while in [facility]. In the interim, patient continues to receive a carbohydrate consistent diet (until 05/05/2025, 12:00am, at which time, patient will be made NPO for cardiac catheterization in the 05/05/2025 am [address] Interventional CARDS Dr. Houston Ribeiro), home-scheduled empagliflozin 25mg PO qam, lispro insulin sliding scale qac + qhs, and POC glucose qac + qhs (until 05/05/2025, 12:00am, at which time, patient will be made NPO for cardiac catheterization in the 05/05/[address] Interventional CARDS [address] Houston Ribeiro, and patient's lispro insulin sliding scale and POC glucose will shift from qac + qhs interval to a q6h interval). (4) Hereditary spherocytosis: Plan: Patient has a past medical history of hereditary spherocytosis, for which p atient underwent splenectomy (1985) with subsequent development of chronic leukocytosis, and which is attributed to lymphocyte redistribution from the mq-yfygmv-cztwmad spleen (which is a reservoir for up to 25% of all lymphocytes in the human body) to the peripheral blood, s/p incomplete vaccination schedule [with regards to the 3 principal encapsulated organisms (e.g., Streptococcus pneumoniae, Haemophilus influenzae, and Neisseria meningitidis) that an asplenic patient's macrophages are incapable of opsonizing efficiently] including s/p Prevnar 20, but lacking Pneumovax 23, and otherwise naive with respect to vaccination against the other two encapsulated organisms including Haemophilus influenzae type B and Neisseria meningitidis, as patient concedes "I never got around to getting the shots, Doc." Patient was subsequently advised to follow up with his PCP in his hometown of [place], [place], upon his return to his hometown [place], [place], to coordinate vaccinations against 3 principal encapsulated organisms (e.g., Streptococcus pneumoniae, Haemophilus influenzae, and Neisseria meningitidis) that an asplenic patient's macrophages are incapable of opsonizing efficiently], including Pne umovax 23 (against Streptococcus pneumoniae, HiB against Haemophilus influenzae type B, MenACWY, and MenB (against Neisseria meningitidis). Patient reports "I will think about it." (5) History of splenectomy: Plan: See bullet #4 above for details. Plan 59 years old male with PMH of DNR/DNI @ home, obesity with BMI 31.3 (height 182.9 cm; weight 104.6 kg), former tobacco abuse with no subsequent diagnosis of COPD, not on home O2 or home steroids, hereditary spherocytosis, s/p splenectomy (1985) with subsequent development of chronic leukocytosis, attributed to lymphocyte redistribution from the vr-fbzxns-xndhfqq spleen (which is a reservoir for up to 25% of all lymphocytes in the human body) to the peripheral blood, s/p incomplete vaccination schedule [with regards to the 3 principal encapsulated organisms (e.g., Streptococcus pneumoniae, Haemophilus influenzae, and Neisseria meningitidis) that an asplenic patient's macrophages are incapable of opsonizing efficiently] including s/p Prevnar 20, but lacking Pneumovax 23, and otherwise naive with respect to vaccination against the other two encapsulated organisms including Haemophilus influenzae type B and Neisseria meningitidis, as patient concedes "I never got around to getting the shots, Doc.", non-insulin dependent DM2 x 4 years with long-term glycemic control poor as manifested by HbA1c 8.1% (05/04/2025, 6:19am), on home-scheduled metformin 1000mg PO bid and empagliflozin 25mg PO qam, HTN on lasix 20mg PO qam, isosorbide mononitrate 60mg PO qam, lisinopril 5mg P qam, and metoprolol tartrate 50mg PO bid, CAD s/p acute NSTEMI #1 (2017), no intervention, s/p acute NSTEMI #2 (2018), s/p stents x 2 in LAD, s/p acute NSTEMI #3 (2019), no intervention, now on home-scheduled atorvastatin 80mg PO qhs and plavix 75mg PO daily, 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[employer], 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, 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, at least 3,000 miles per week, ~120,000- 150,000 miles per year)) from his hometown of [place], [place], for approximately 4 hours (on 05/03/2025) on route [address], while en route to [place], [place], with a goal of dropping off a 47,000 pounds supply of plastic pellets (from which [employer] plastic bottles will be made, and which he had loaded onto his [employer] truck himself on 05/02/2025 using a hydraulic pump over a 2 hour period), when he started to notice a "small ache in my chest and I didn't think much about it, so I just kept driving on, and then about 2 hours later, I felt all of a sudden this crushing pain right in the middle of my chest which I couldn't ignore", and which the patient further describes as being non- traumatic, non-radiating, non-exertional, non-positional, non-pleuritic, non- prandial, acm-[id number]-berjcnbp, rated 10+ (on a 10 point intensity scale of pain), with concomitant shortness of breath, blurry vision, and nausea, but no cough, wheeze, hemoptysis, sore throat, diplopia, headache, weakness, vomiting/diarrhea/abdominal pain, fevers/chills/diaphoresis. Patient reports that tolerated the substernal chest pain for approximately 1 hour, and then the patient could drive no further. Patient subsequently left [address] and took [address] ([place]), and came to a rest stop and took ASA 324mg PO x 1 dose (05/03/2025, 8:50am) and 2 NTG tablets (05/03/2025, 8:51am) to no avail. Patient then called 911 for help. EMS arrived to the patient on 05/03/2025, 8:56am, and gave the patient 15 liters/minute O2 via non-rebreather face mask (05/03/2025, 8:57am). Patient still reported 10+ (on a 10 point intensity scale of pain) pain in the substernal area; patient subsequently received morphine sulfate 4mg IV x 1 dose (05/03/2025, 9:14am) and reported almost immediate/partial relief in his substernal chest pain with the pain subsiding from a 10+ to a 4 (on a 10 point intensity scale of pain). Patient then complained of nausea; patient subsequently received zofran 4mg IV x 1 dose (05/03/2025, 9:15am) and reported almost immediate/complete relief in his nausea. Patient then asked EMS to remove the 15 liters/minute O2 via non-rebreather face mask due to discomfort with non-rebreather face mask. Patient subsequently took off the non-rebreather face mask; patient subsequently received 6 liters/minute O2 via nasal cannula. EMS subsequently arrived with the patient at [facility] ER on 05/03/2025, 9:31am for further evaluation. Patient was subsequently placed in OBSERVATION on the hospitalist service @ [facility] on 05/03/2025 with the following diagnoses: 1. Chest pain, R/O acute PA. 2. Acute hypovolemic hyponatremia with admission Na 134 mmol/L (05/03/2025, 9:46am). Initial Plan in [facility] ER included: Chest pain rule out PA High risk story and history however two negative troponins, normal EKG with hours of chest pain is reassuring but still could be unstable angina especially given lack of alternative diagnosis ASA given by EMS, continue daily along with his usual clopidogrel Continue metoprolol, ISMN and atorvastatin, currently unable to tolerate nitro paste due to hypotension Serial troponin, TTE, Lipid panel and HbA1C with AM labs Currently pain free when seen Consult cardiology #Hypertension No change to home regimen of lisinopril, ISMN, metoprolol and furosemide #T2DM HbA1C with AM labs Continue Jardiance, hold metformin due to IV contrast given Novolog for correction only --Goal BSG Range: Low 110 mg/dL, High 140 mg/dL --Correction Factor: 45 mg/dL/unit No carb ratio --BSGs ACHS if eating, q6h if npo #Leucocytosis / History of splenectomy Suspect this is stress demargination and should normalize by tomorrow, no infective symptoms/signs found VTE Prophylaxis - deferred pending repeat troponins Disposition - observation to PCU Admission and Anticipated Discharge Date Admission Date: May 03, 2025 Subjective "I still have a little bit of chest pain in the middle of my chest. It's a 2 (out of 10 point intensity scale) pain now. It's dull. It doesn't go anywhere. Just stays in the middle of my chest. Review of Systems Constitutional: Positive for substernal chest pain, not reproducible on palpation of chest. Negative for antecedent/coincident fevers, chills, diaphoresis, cough, wheeze, sore throat, hemoptysis, palpitations, pleurisy, nausea, vomiting, diarrhea, abdominal pain, pelvic pain, hematemesis, hematochezia, melena, hematuria, dysuria, frequency, urgency, headaches, dizziness, lightheadedness, visual changes, hearing changes, weakness, falls, syncope, trauma, travel history, sick contacts, or food/drug ingestions novel or new. All other review of systems are reported as negative by the patient on 05/04/2025. Physical Exam Constitutional: General: Comfortable, coherent, and cooperative. Not confused or obtunded, but lethargic. Patient speaks very slowly, but in complete, fluent, and articulate 3-5 word sentences without pause, interruption, cough, or wheeze with O2 sat 92% on room air (05/04/2025, 11:59am). HEENT: Normocephalic, atraumatic. No nystagmus, gaze paresis, anisocoria, miosis, mydriasis, hyphema, scleral injection, conjunctivitis, or pterygium. No lid lag. No proptosis/exophthalmos. No otorrhea or rhinorrhea. No pharyngeal erythema, edema, or discharge. Neck: Supple, no stridor, bruit, goiter, or hepato-jugular reflux. Jugular venous pressure is estimated to be 3 cm above the sternal angle of Jeremy, which in turn, is 5 cm above the level of the right atrium; with jugular venous pressure estimated to be 8 cm, then, there is no jugular venous distention on 05/04/2025. Lymphatics: No cervical (anterior/posterior), supraclavicular, infraclavicular, axillary, epitrochlear, or inguinal adenopathy. Chest: Symmetric rise and fall with respirations. Non-tender to palpation. Lungs: Clear to auscultation and percussion. No audible expiratory wheeze, egophony, pectoriloquy, increase in tactile fremitus, or flatness/dullness to percussion at the bases. Heart: Regular rate and rhythm. S1 and S2 noted. No S3 or S4 summation gallop. No tripartite friction rub. Grade II/ early systolic murmur @ LLSB without radiation to the carotids, axilla, or back, and which remains invariant in regards to the respiratory cycle. Abdomen: Soft, non-tender, non-distended. No rebound, guarding, Nash's sign, or organomegaly. Bowel sounds auscultated in all 4 quadrants. Extremities: No clubbing, cyanosis, or edema. Skin: No decubitus ulcer, exanthem, or enanthem. Urology: No srivastava catheter. No urethral discharge. Psychiatry: No suicidal ideation. No anxiety. No insomnia. Smiles appropriately. Results & Data Results & Data Vital Signs (Past 12 Hours) Vital Signs Temp Pulse Pulse Resp BP BP Pulse Ox 05/04/25 11:59 67 114/76 05/04/25 11:44 77 116/86 05/04/25 11:14 36.8 C 68 20 108/74 92 05/04/25 08:05 36.5 C 66 23 126/77 95 05/04/25 08:00 59 L 05/04/25 08:00 O2 Del Method 05/04/25 11:59 05/04/25 11:44 05/04/25 11:14 Room Air 05/04/25 08:05 Room Air 05/04/25 08:00 05/04/25 08:00 Room Air Laboratory Results WBC 17.23, N79 L13 M 6 B1, Hb 17.3, MCV 83.5, MCHC 37.0, platelet count 597 (05/03/2025, 9:46am). WBC 15.55, N65 L21 M10 E2 B1, Hb 17.1, MCV 85.9, MCHC 37.3, platelet count 544 (05/04/2025, 6:19am). Na 134, K 4.5, BUN 15, creatinine 0.91, glucose 283, Ca 9.1 (05/03/2025, 9:46am). Na 137, K 4.1, BUN 20, creatinine 1.01, glucose 150, Ca 8.1 (05/04/2025, 6:19am). Troponin-I #1 5.0 pg/mL (05/03/2025, 9:46am). Troponin-I #2 6.1 pg/mL (05/03/2025, 11:35am). Troponin-I #3 156.3 pg/mL (05/03/2025, 5:34pm). Troponin-I #4 2,589.3 pg/mL (05/04/2025, 12:08am). Troponin-I #5 5,183.0 pg/mL (05/04/2025, 6:19am). Troponin-I #6 (05/04/2025, 4:43pm). Fasting lipid profile: total cholesterol 185, LDL 102, HDL 58, triglyceride 124 (05/04/2025, 6:19am). Diagnostic Findings CTA chest #1 (05/03/2025, 10:35am): 1. No pulmonary emboli identified. 2. No acute intrathoracic findings. 3. Mild cardiomegaly. 4. 4 mm subpleural right middle lobe nodule. This is likely benign. A chest CT in 6 months to ensure stability is recommended. The possible left lower lung nodule on chest radiograph from earlier today was artifactual. CTA chest (05/03/2025, 11:45am): 1. No thoracic aortic dissection. Normal caliber thoracic aorta. 2. Mild cardiomegaly. 3. No consolidation to suggest pneumonia. EKG #1 (05/03/2025, 9:38am): NSR @ 77, TN 202, QTC 466, no ST elevation; no ST depression; + TWI in aVL; no q waves (by my review). EKG #2 (05/03/2025, 10:06am): NSR @ 65, TN 196, QTC 434, no ST elevation; no ST depression; no TWI; no q waves (by my review). EKG #3 (05/03/2025, 10:24am): sinus christine @ 54, TN 190, QTC 411, [address] elevation in I, aVL; no ST depression; no TWI; no q waves (by my review). EKG #4 (05/04/2025, 5:43am): NSR @ 62, TN 188, QTC 420, no ST elevation; no ST depression; no TWI; no q waves (by my review). TTE (05/03/2025, 1:04pm): 1. LVEF 55-60%. LV wall motion normal. 2. RV normal size and function. 3. LA/RA sizes normal. 4. No . No AR. 5. PV not well visualized. 6. No MR. 7. Mild TR with RVSP 30-40 mm Hg. 8. Aortic root normal size. IVC mildly dilated. 9. No pericardial effusion. (as per CARDS Dr. Gerry Alvarez). PG Care Time/CCT Total # of Minutes Spent Total Time Spent with Patient: Total time spent is greater than 50% in coordination of care (as documented) at patient's floor/unit and/or counseling patient: Coding Level of Care Code 68226 SUB INP/OBS CARE 3/50MIN Diagnoses Chest pain, rule out acute myocardial infarction R07.9 History of myocardial infarction I25.2 Type 2 diabetes mellitus E11.9 Hereditary spherocytosis D58.0 History of splenectomy Z90.81
[2025-05-04] MEDS: ACETAMINOPHEN 325 MG TAB PO PRN (19:21)
[2025-05-04] MEDS: Heparin IV Adult Wt-Based Standard *NO* INITIAL Bolus Protocol IV ONE (20:57)
[2025-05-05 04:41] LABS: ANTI-Xa, UFH(UnfractionatedHep 0.83 IU/ml (0.3-0.7)
--- NOTE | 2025-05-05 08:10 | Cardiology Consultation ---
Date of Consultation May 05, 2025 Assessment & Plan (1) Non-STEMI (non-ST elevated myocardial infarction): Prior LAD stenting. Distal LAD wall motion abnormality unclear if this is new or residual from his original MT. We also do not know what the other coronaries look like. Therefore, at this time I recommend we proceed with cardiac catheterization to define his coronary anatomy and if indicated proceed with PCI. Further recommendations pending results of cardiac catheterization. (2) Hypercholesterolemia: Patient is high risk. High intensity statin therapy ongoing with atorvastatin 80 mg daily. (3) Coronary artery disease: Known coronary disease. He will undergo coronary angiography to further define his anatomy and PCI if indicated. His blood pressure and heart rate are currently at target. He is on guideline directed medical therapy with atorvastatin, beta-priscilla, GRZEGORZ inhibitor, and aspirin. He was on isosorbide mononitrate at home for anginal relief. History of Present Illness Reason for Consultation: Chest pain, non-ST elevation MT (interventional cardiology consultation). Attending Physician: Herminio Carreon MD, PhD History of Present Illness 59-year-old gentleman with a history of prior MT and stenting of his LAD (details unknown). Presented to this institution with onset of chest pain on Tuesday. 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 His initial EKG failed to demonstrate ST elevation or other changes consistent with acute MT. He was admitted for further workup and management. An echocardiogram was obtained yesterday demonstrating wall motion abnormality in the distal LAD territory on some of the images. The patient's troponin continued to climb and he had some very mild residual chest discomfort. Unfortunately, he had received Lovenox rather than heparin for the AMI. He was seen by general cardiology who felt that cardiac catheterization was indicated. Decision was made to perform catheterization today after the Lovenox had washed out and he was placed on heparin drip. Patient tells me he has not had any chest pain in the past 24 hours. He has had no shortness of breath, syncope, near syncope, orthopnea, PND, racing heartbeat, palpitations, or edema. He was resting comfortably and in fact was asleep when I came into the room this morning. We discussed the findings on the echo as well as his past history. He tells me he does follow with a supervisor filtration in his hometown but he could not recall the practice name. He says since his prior MT he has had no anginal symptoms until this recent episode. Therefore, I recommended that we proceed with catheterization today (despite his lack of ongoing symptoms) because of the uncertainty in his prior coronary angiography as well as the significantly elevated troponin at this time. The risks, benefits, and alternatives to the procedure were discussed in detail with the patient. Risks include but are not limited to: , stroke, MT, renal failure, adverse drug reaction, infection, bleed, need for emergent surgery, and exposure of radiation. We also discussed the lack of onsite cardiac surgical backup and plan for air evacuation in the event of emergency. He voiced understanding wish to proceed with catheterization. Patient tells me that his last cath was performed by the radial access approach. He said postprocedure they "injured nerves or something than a coffee cup for several months. I explained to him that there are many nerve endings in the radial artery and that we could have a reinjury of the nerve from the radial artery approach. On the other hand, he may not have any issues with the radial approach at this time. He wished to proceed from the radial approach reserving a femoral approach if we have any troubles. Allergies Allergy/AdvReac Type Severity Reaction Status Date / Time No Known Allergies Allergy Unverified 05/03/25 11:47 Home Medications Medication Instructions Recorded Confirmed Type atorvastatin 80 mg tablet 80 mg PO HS 05/03/25 05/03/25 History clopidogrel 75 mg tablet 75 mg PO DAILY 05/03/25 05/03/25 History empagliflozin 25 mg tablet 25 mg PO QAM 05/03/25 05/03/25 History (Jardiance) furosemide 20 mg tablet 20 mg PO QAM 05/03/25 05/03/25 History isosorbide mononitrate 60 mg 60 mg PO QAM 05/03/25 05/03/25 History tablet,extended release 24 hr lisinopril 5 mg tablet 5 mg PO QAM 05/03/25 05/03/25 History metformin 1,000 mg tablet 1,000 mg PO BID 05/03/25 05/03/25 History metoprolol tartrate 50 mg tablet 50 mg PO BID 05/03/25 05/03/25 History nitroglycerin 0.4 mg sublingual 0.4 mg sublingual DIRECTED PRN 05/03/25 05/03/25 History tablet Chest Pain Patient History Medical History (Updated 05/05/25 @ 09:50 by Houston Ribeiro MD, PhD) Chest pain Type 2 diabetes mellitus History of myocardial infarction Hereditary spherocytosis Surgical History History of splenectomy Social History Smoking Status: Former smoker Hx Alcohol Use: Yes Alcohol type: beer Hx Substance Use: No Preferred Language: Mohawk Communication Ability: Effective Handicapper [employer] Required: No Beliefs That Will Affect Care: None Current Living Situation: Spouse Other Information That Helps Us Care for You: No Feels Safe at Home: Yes Safety Concerns: Feels Safe At This Time Assistive Devices: Glasses Review of Systems Review of Systems: Negative except as per HPI Physical Exam Constitutional: WD/WN, vitals as above (Obese. No acute distress.) Neck: Thick. No JVD. Respiratory: Clear to auscultation bilateral LE. No wheezing, rhonchi, or rales. Cardiovascular: Regular rate and rhythm. S4 gallop. Soft systolic murmur. No edema. 2+ radial pulse on the right. Musculoskeletal: no cyanosis or clubbing, extremities motor strength 5/5 Neurologic: Cognition is intact. Speech is fluent. No focal deficits. Psychiatric: A+Ox3, euthymic affect Results & Data Vital Signs (Past 12 Hours) Vital Signs Temp Pulse Pulse Resp BP Pulse Ox O2 Del Method 05/05/25 07:54 Room Air 05/05/25 07:03 63 05/05/25 02:58 36.5 C 71 18 104/65 94 Room Air 05/04/25 23:10 36.9 C 64 16 121/75 95 Room Air 05/04/25 21:44 76 PG Care Time/CCT Total # of Minutes Spent Total Time Spent with Patient: Total time spent is greater than 50% in coordination of care (as documented) at patient's floor/unit and/or counseling patient: Coding Level of Care Code 69564 IN/OBS CONSULT LVL 4,60M Diagnoses Non-STEMI (non-ST elevated myocardial infarction) I21.4 Hypercholesterolemia E78.00 Coronary artery disease I25.10
[2025-05-05] MEDS: HEPARIN (PORCINE) 1000 UNIT/ML 10 ML (CATH LAB USE ONLY) ONE (10:57)
[2025-05-05] MEDS: MIDAZOLAM HCL 1 MG/ML 2ML VIAL ONE (10:57)
[2025-05-05] MEDS: niCARdipine 2,000 MCG/20 ML SYR ONE (10:58)
[2025-05-05] MEDS: NITROGLYCERIN/D5W 100MCG/ML 20ML SYR ONE (10:58)
[2025-05-05] MEDS: IODIXANOL (VISIPAQUE) 320 MG/ML 100ML IV ONE (10:58)
[2025-05-05] MEDS: OPTIRAY 350 ONE (10:59)
--- NOTE | 2025-05-05 11:11 | Pre Anesthesia Assessment ---
Date of Service May 05, 2025 Pre Sedation Assessment Vital Signs Temp Pulse Pulse Resp BP BP Pulse Ox 05/05/25 08:08 36 C L 87 20 118/72 96 05/05/25 07:54 05/05/25 07:03 63 05/05/25 02:58 36.5 C 71 18 104/65 94 05/04/25 23:10 36.9 C 64 16 121/75 95 05/04/25 21:44 76 05/04/25 19:20 36.8 C 84 18 130/72 95 05/04/25 19:00 05/04/25 15:22 05/04/25 11:59 67 114/76 05/04/25 11:44 77 116/86 05/04/25 11:14 36.8 C 68 20 108/74 92 Pulse Ox O2 Del Method O2 Del Method 05/05/25 08:08 Room Air 05/05/25 07:54 Room Air 05/05/25 07:03 05/05/25 02:58 Room Air 05/04/25 23:10 Room Air 05/04/25 21:44 05/04/25 19:20 Room Air 05/04/25 19:00 Room Air 05/04/25 15:22 96 Room Air 05/04/25 11:59 05/04/25 11:44 05/04/25 11:14 Room Air Cardiovascular RRR, no murmur, no edema Respiratory normal respiratory effort, lungs clear to auscultation Pre-Sedation Airway Assessment Smoking Status: Former smoker Mallampati 3 ASA 3 Notes The planned sedation has been discussed with the patient. Informed Consent was obtained. I have identified the patient, determined the appropriateness of s edation and have assessed the patient immediately prior to the procedure. All medicine(s) and interventions are by my order.
--- NOTE | 2025-05-05 11:13 | Post Anesthesia Assessment ---
Date of Service May 05, 2025 Post Sedation Assessment Vital Signs Temp Pulse Pulse Resp BP BP Pulse Ox 05/05/25 08:08 36 C L 87 20 118/72 96 05/05/25 07:54 05/05/25 07:03 63 05/05/25 02:58 36.5 C 71 18 104/65 94 05/04/25 23:10 36.9 C 64 16 121/75 95 05/04/25 21:44 76 05/04/25 19:20 36.8 C 84 18 130/72 95 05/04/25 19:00 05/04/25 15:22 05/04/25 11:59 67 114/76 05/04/25 11:44 77 116/86 05/04/25 11:14 36.8 C 68 20 108/74 92 Pulse Ox O2 Del Method O2 Del Method 05/05/25 08:08 Room Air 05/05/25 07:54 Room Air 05/05/25 07:03 05/05/25 02:58 Room Air 05/04/25 23:10 Room Air 05/04/25 21:44 05/04/25 19:20 Room Air 05/04/25 19:00 Room Air 05/04/25 15:22 96 Room Air 05/04/25 11:59 05/04/25 11:44 05/04/25 11:14 Room Air Recovery Score Activity: Moves 4 extremities Respiration: Deep Breath/Cough Circulation: +/-20% PreAnes Value Consciousness: Fully Awake Oxygen Saturation: > 92% On Room Air Discharge Sedation Level of Care: Fast Track Phase II Post Sedation Plan On clinical assessment, the patient appears to have tolerated the sedation without complications. Patient is recovering as anticipated. Patient will continue to be monitored by nursing and may be discharged when sedation discharge criteria are met per below protocol. Upon Completions of procedure up to 15 minutes continue every 5 minute vital signs and the P.A.R. score; then discharge to a Phase I or Fast Track to Phase II per the following guidelines: * Discharge Patient to appropriate Phase II area if PAR is 8 or greater or return to pre- procedure baseline. The post - procedure orders will be as directed. * If PAR score is less than 8 or not return to pre-procedure baseline then patient will follow Phase I monitoring till PAR is reached for Phase II. The Phase I may be done in procedure room or may call to secure a Phase I area. * If naloxone or flumazenil are used for reversal, hold in Phase I for continued monitoring from when last reversal dose was given for a minimum of 60 minutes or longer pending the nurse and/or physician discretion of patient condition before discharge to Phase II. Please call the Sedation Physician to re-evaluate and complete post-note for discharge to Phase II area. Do NOT discharge from procedure sedation or Phase 1 until post- sedation evaluation note is complete by procedure /sedation MD Sedation Discharge Instructions to be given to the patient at discharge to home.
[2025-05-05] MEDS ORDERED: Nursing to Pharmacy Communication SCH (12:45)
--- NOTE | 2025-05-05 12:49 | Cardiac Catheterization ---
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 Cardiac Status Clinical evaluation leading to the procedure CAD Presenation: Non STEMI Anginal Classification: CCS IV Heart Failure: No Cardiogenic Shock within 24 Hours: No Cardiac Arrest within 24 Hours: No Imaging Studies Past 6 Months: Yes Stress Studies Past 6 Months: No Coronary Anatomy Dominant: Right Left Main (% Stenosis): Normal LAD (% Stenosis): Proximal (In-stent restenosis 70%) D1 (% Stenosis): Ostial (70%) D2 (% Stenosis): Normal (Scattered 30%) Circumflex (% Stenosis): Mid (Calcified 50 to 60%) OM1 (% Stenosis): Proximal (70% (less than 2 mm diameter)) L PL1 (% Stenosis): Normal RCA (% Stenosis): Proximal (Diffuse 20%) R PDA (% Stenosis): Normal (Diffuse less than 20%) R PL1 (% Stenosis): Normal Diagnostic Physicians Name: Houston Ribeiro MD, PhD Closure Device Percutaneous Entry Location: Radial Closure Device: Radial Band Recommendations: Medical Therapy and/or Counseling and PCI without planned CABG PCI Indication: PCI for high risk Non-CJ Lesion Segment Name: Proximal LAD Culprit Artery: Yes Stenosis Prior to Rx (%): 70% Chronic Total Occlusion: No Pre-Procedure ILIANA Flow: 2 Previously Treated Lesion: No Lesion Complexity: Non-High/Non-C Lesion Length (mm): 6 Thrombus Present: No Bifurcation Lesion: No Guidewire Across Lesion: Yes Cardiac Cath Procedure Full Procedure Date May 05, 2025 Pre-Procedure Diagnosis Pre-Procedure Diagnosis: Non STEMI AUC Score AUC Score: 08 Post-Procedure Diagnosis Post-Procedure Diagnosis: Severe CAD and Successful PCI Procedure(s) Performed Procedure(s) Performed: Coronary Angiography, Drug Eluting Stent and IVUS 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 Sedated using IV Versed and fentanyl. Soft tissues of the right wrist were anesthetized using 2 mL of 1% Xylocaine. The right radial artery was accessed with a modified Seldinger technique and a 6 Kazakh radial artery glide sheath was placed. Patient was provided anticoagulation with IV heparin and antispasmodics including nicardipine and nitroglycerin. All catheters were advanced and exchanged over a 0.035 J-tip wire. Left coronary angiography in orthogonal views with a 5 Kazakh Martinez 4 diagnostic catheter. Right coronary angiography in orthogonal views with a 5 Kazakh Martinez 4 diagnostic catheter. Diagnostic catheters were removed. Decision was made to proceed with PCI of the proximal in-stent restenosis lesion. ACT was checked and additional heparin was provided as needed to maintain therapeutic anticoagulation. (This was repeated throughout the case). A 6 Kazakh EBU 3.0 guide catheter was used to engage the left main coronary. A BMW reversal guidewire was advanced and under fluoroscopic guidance was passed distally into the LAD. Predilatation of the in-stent restenosis using a 2.5 x 12 mm trek balloon at 14 beka. Additional predilatation using 3.5 x 12 mm NC sprinter balloon at 13, 12, and 12 beka respectively throughout the stent. A 4.0 x 15 mm [place] drug-eluting stent was then advanced and positioned with its proximal edge just after the ostium of the LAD and its distal edge beyond the distal edge of the prior stent. Deployed at 14 beka. Sustain Engineer angiography performed. And IVUS catheter was advanced to evaluate apposition of the stent as well as any residual lesion. Distal apposition was good but the mid stent had calcification and not adequately apposed in either the proximal or the midportion of the stent. Therefore, IVUS removed. A 4.0 x 8 mm NC Ramon balloon was then advanced and positioned within the stent. Postdilatation in the proximal and midportion of the stent were performed twice to 17 beka and once to 18 beka. NC stent balloon removed. IVUS catheter was reinserted. Again, distal segment of the stent showed good apposition, the mid segment was also significantly improved, and the proximal segment was also improved but not quite opposed optimally. IVUS was removed. A 4.5 x 12 mm NC Ramon balloon was then inserted to cover the proximal and midportion of the stent. This was initially postdilated at 13 beka with a second inflation up to 14 beka. Noncompliant balloon was removed and angiography was performed. The guidewire was then removed and final angiographic evaluation performed. Guide catheter was then removed. Radial artery sheath was removed. Hemostasis was obtained using a TR band. Patient remained hemodynamically stable and asymptomatic. He was returned to the recovery area. This ended the case. Coronary angiography findings: XGW-yhsvw-valfmwy vessel bifurcating into LAD and circumflex. Mild luminal irregularities. PHX-[id number] vessel. Proximal stent is patent except for in the early to mid segment where there is in-stent restenosis and haziness (calcification?) of up to 70% stenosed. ILIANA II flow beyond the stent. LAD gives a large septal branch, a medium caliber first diagonal which has ostial 70% stenosis and then a large branching second diagonal. Mild scattered disease less than 30% in this vessel. The distal LAD is actually smaller in caliber than the diagonal and has mild luminal irregularities. LCx-this is large caliber and nondominant. Proximal segment without disease. Provides a branching OM1 which has proximal 70% stenosis but is less than 2 mm in diameter. The mid circumflex in the AV groove has calcified 50 to 60% stenosis. It then provides a medium caliber posterolateral before it ends distally. PLB has no disease. RCA-this is large caliber and dominant. Proximally there is diffuse 20% stenosis, in the mid and distal RCA have mild luminal irregularities. The vessel then bifurcates into a large PDA and a large branching posterolateral. PDA has diffuse less than 20% stenosis. Posterior lateral has mild luminal irregularities. PCI of LAD-there is 0% residual stenosis post PCI ILIANA-3 flow post PCI No evidence of dissection or perforation post PCI IVUS evaluation consistent with good apposition and no complications. Summary: 1. Severe in-stent restenosis of prior proximal LAD stent. This is the culprit for his chest pain and elevated troponin. 2. Successful PCI with implantation of a large caliber drug-eluting stent covering the ostial through proximal LAD. 3. Patient shall remain on dual antiplatelet therapy with aspirin and Plavix fo r at least 1 to 2 years. I would also recommend indefinite use given the location and extent of stenting to that vessel. 4. Guideline directed medical therapy for secondary prevention of coronary di sease ongoing with atorvastatin, lisinopril, and beta-priscilla. Hemodynamics Rest Ao:: 86/69 mmHg Final Ao: 108/75 mmHg LV: Not performed Recommendations Recommendations: Medical Therapy and/or Counseling and PCI without planned CABG Radiation Exposure (mGy) 2816 mGy, fluoroscopy time 12.5 minutes Contrast (mls) 180 cc Anesthesia 2 mg Versed, 50 mcg fentanyl IV. 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 Any exceptions are noted below. [facility] Card Cath Procedure Codes Cardiac Catheterization Procedure 1: Cardiovascular Cath Procedures: 58917 Coronaries Therapeutic Services & Ancillary Procedure 1: Cardiovascular Tx and Anc Procedures: 01295 IV Ultrasound (Coronary or Graft) Moderate Sedation Procedure 1: Sedation/Anesthesia: 98848 Mod Sedation by the same physician;Init15 Min Child Age 5 & Up (Initial 15 minutes, start time 1008) Procedure 2: Sedation/Anesthesia: 09165 Mod Sedation by the same physician; Ea [id number] Minutes (Additional 38 minutes, end time 1101) Stenting Procedure 1: Cardiovascular Stent Procedures: 78992 Perc transluminal revascularization of acute sub/total occl, aMI (LAD) PG Care Time/CCT Total # of Minutes Spent Total Time Spent with Patient: Total time spent is greater than 50% in coordination of care (as documented) at patient's floor/unit and/or counseling patient:
[2025-05-05 12:53] LABS: ANTI-Xa, UFH(UnfractionatedHep > 1.50 IU/ml (0.3-0.7)
[2025-05-05] MEDS: SODIUM CHLORIDE 0.9% 500 ML IV ONE (13:30)
[2025-05-05] MEDS: SODIUM CHLORIDE 0.9% 50 ML BAG IV STA (15:54)
[2025-05-05] MEDS: INSULIN ASPART PER UNIT CHARGE SC SCH (16:14)
--- NOTE | 2025-05-05 19:54 | Hospitalist Progress Note ---
Date of Service May 05, 2025 Assessment & Plan (1) Chest pain, rule out acute myocardial infarction: Plan: cf., Troponin-I #1 5.0 pg/mL (05/03/2025, 9:46am). cf., Troponin-I #2 6.1 pg/mL (05/03/2025, 11:35am). cf., Troponin-I #3 156.3 pg/mL (05/03/2025, 5:34pm). cf., Troponin-I #4 2,589.3 pg/mL (05/04/2025, 12:08am). cf., Troponin-I #5 5,183.0 pg/mL (05/04/2025, 6:19am). cf., Troponin-I #6 8,746.3 pg/mL (05/05/2025, 4:57pm). cf., EKG #1 (05/03/2025, 9:38am): NSR @ 77, PA 202, QTC 466, no ST elevation; no ST depression; + TWI in aVL; no q waves (by my review). cf., EKG #2 (05/03/2025, 10:06am): NSR @ 65, PA 196, QTC 434, no ST elevation; no ST depression; no TWI; no q waves (by my review). cf., EKG #3 (05/03/2025, 10:24am): sinus christine @ 54, PA 190, QTC 411, [address] elevation in I, aVL; no ST depression; no TWI; no q waves (by my review). cf., EKG #4 (05/04/2025, 5:43am): NSR @ 62, PA 188, QTC 420, no ST elevation; no ST depression; no TWI; no q waves (by my review). cf., TTE (05/03/2025, 1:04pm): 1. LVEF 55-60%. LV wall motion normal. 2. RV normal size and function. 3. LA/RA sizes normal. 4. No . No AR. 5. PV not well visualized. 6. No MR. 7. Mild TR with RVSP 30-40 mm Hg. 8. Aortic root normal size. IVC mildly dilated. 9. No pericardial effusion. (as per CARDS Dr. Gerry Alvarez). While the [address] elevation in I, aVL (as noted on 05/03/2025, 10:24am EKG #3) has resolved, and while TTE (05/03/2025, 1:04pm) revealed no LV wall motion abnormalities to suggest acute myocardial ischemia, patient's troponin-I levels continued to increase, not having yet reached a peak/plateau, and patient still reported a constant ache in the substernal region, rated a 1 (out of 10 point intensity scale). Hence, concern for acute lateral wall STEMI remains. 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 In addition, patient initially started with lovenox 100mg (1mg/kg SQ q12) SQ x 1 dose (05/03/2025, 7:53pm) in [facility] ER. Patient will transition to heparin infusion (05/04/2025, 7:00pm) in [facility] Tele bed #E206-1, as patient underwent: (A) Cardiac catheterization (05/05/2025, 12:26pm): Coronary angiography findings: QZY-pxnhs-uzicbih vessel bifurcating into LAD and circumflex. Mild luminal irre gularities. FFU-romab-tkvdkju vessel. Proximal stent is patent except for in the early to mid segment where there is in-stent restenosis and haziness (calcification?) of up to 70% stenosed. ILIANA II flow beyond the stent. LAD gives a large septal branch, a medium caliber first diagonal which has ostial 70% stenosis and then a large branching second diagonal. Mild scattered disease less than 30% in this vessel. The distal LAD is actually smaller in caliber than the diagonal and has mild luminal irregularities. LCx-this is large caliber and nondominant. Proximal segment without disease. Provides a branching OM1 which has proximal 70% stenosis but is less than 2 mm in diameter. The mid circumflex in the AV groove has calcified 50 to 60% stenosis. It then provides a medium caliber posterolateral before it ends distally. PLB has no disease. RCA-this is large caliber and dominant. Proximally there is diffuse 20% stenosis, in the mid and distal RCA have mild luminal irregularities. The vessel then bifurcates into a large PDA and a large branching posterolateral. PDA has diffuse less than 20% stenosis. Posterior lateral has mild luminal irregularities. PCI of LAD-there is 0% residual stenosis post PCI ILINAA-3 flow post PCI No evidence of dissection or perforation post PCI IVUS evaluation consistent with good apposition and no complications. Summary: 1. Severe in-stent restenosis of prior proximal LAD stent. This is the culprit for his chest pain and elevated troponin. 2. Successful PCI with implantation of a large caliber drug-eluting stent covering the ostial through proximal LAD. 3. Patient shall remain on dual antiplatelet therapy with aspirin and Plavix for at least 1 to 2 years. I would also recommend indefinite use given the location and extent of stenting to that vessel. 4. Guideline directed medical therapy for secondary prevention of coronary disease ongoing with atorvastatin, lisinopril, and beta-priscilla. (as per Interventional CARDS Dr. Houston Ribeiro). (B) TTE (05/05/2025, 2:54pm): 1. LVEF 55-60%. Robert-apical vee are hypokinetic and similar to prior 05/03/2025, 1:04pm TTE. 2. LV normal size with mild concentric LVH. (as per CARDS Dr. Sima Brantley). Patient has no hematoma @ right radial artery catheterization site. Patient will be discharged back to his home in [place], [place] in the 05/06/2025 am with an [employer] rental car awaiting patient in 05/06/2025 am, whereupon, patient will drive himself home to [place], [place]. (2) History of myocardial infarction: Plan: CAD s/p acute NSTEMI #1 (2017), no intervention, s/p acute NSTEMI #2 (2018), s/p stents x 2 in LAD, s/p acute NSTEMI #3 (2019), no intervention, now on home- scheduled atorvastatin 80mg PO qhs and plavix 75mg PO daily. 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 Continue ASA 81mg PO daily while [facility], along with patient's home-scheduled atorvastatin 80mg PO qhs and plavix 75mg PO daily, to provide secondary prophylaxis against CAD. (3) Type 2 diabetes mellitus: Plan: Non-insulin dependent DM2 x 4 years with long-term glycemic control poor as manifested by HbA1c 8.1% (05/04/2025, 6:19am), on home-scheduled metformin 1000mg PO bid and empagliflozin 25mg PO qam. Hold OFF home-scheduled metformin 1000mg PO bid while patient remains in [facility] in order to avoid the potential development of post-IV contrast nephropathy as patient has already undergone CTA chest #1 (05/03/2025, 10:35am and CTA chest (05/03/2025, 11:45am), and awaits cardiac catheterization (during which procedure patient will be exposed to IV contrast) in the 05/05/2025 am. In fact, patient should not resume his home-scheduled metformin 1000mg PO bid for at least 72 hours from his last exposure to IV contrast while in [facility]. In the interim, patient continues to receive a carbohydrate consistent diet, home-scheduled empagliflozin 25mg PO qam, lispro insulin sliding scale qac + qhs, and POC glucose qac + qhs. (4) Hereditary spherocytosis: Plan: Patient has a past medical history of hereditary spherocytosis, for which patient underwent splenectomy (1985) with subsequent development of chronic leukocytosis, and which is attributed to lymphocyte redistribution from the zm-jsptoz-iqboqwf spleen (which is a reservoir for up to 25% of all lymphocytes in the human body) to the peripheral blood, s/p incomplete vaccination schedule [with regards to the 3 principal encapsulated organisms (e.g., Streptococcus pneumoniae, Haemophilus influenzae, and Neisseria meningitidis) that an asplenic patient's macrophages are incapable of opsonizing efficiently] including s/p Prevnar 20, but lacking Pneumovax 23, and otherwise naive with respect to vaccination against the other two encapsulated organisms including Haemophilus influenzae type B and Neisseria meningitidis, as patient concedes "I never got around to getting the shots, Doc." Patient was subsequently advised to follow up with his PCP in his hometown of [place], [place], upon his return to his hometown [place], [place], to coordinate vaccinations against 3 principal encapsulated organisms (e.g., Streptococcus pneumoniae, Haemophilus influenzae, and Neisseria meningitidis) that an asplenic patient's macrophages are incapable of opsonizing efficiently], including Pneumovax 23 (against Streptococcus pneumoniae, HiB against Haemophilus influenzae type B, MenACWY, and MenB (against Neisseria meningitidis). Patient reports "I will think about it." (5) History of splenectomy: Plan: See bullet #4 above for details. Plan 59 years old male with PMH of DNR/DNI @ home, obesity with BMI 31.3 (height 182.9 cm; weight 104.6 kg), former tobacco abuse with no subsequent diagnosis of COPD, not on home O2 or home steroids, hereditary spherocytosis, s/p splenectomy (1985) with subsequent development of chronic leukocytosis, attributed to lymphocyte redistribution from the zb-bgzzcy-qknqyln spleen (which is a reservoir for up to 25% of all lymphocytes in the human body) to the peripheral blood, s/p incomplete vaccination schedule [with regards to the 3 principal encapsulated organisms (e.g., Streptococcus pneumoniae, Haemophilus influenzae, and Neisseria meningitidis) that an asplenic patient's macrophages are incapable of opsonizing efficiently] including s/p Prevnar 20, but lacking Pneumovax 23, and otherwise naive with respect to vaccination against the other two encapsulated organisms including Haemophilus influenzae type B and Neisseria meningitidis, as patient concedes "I never got around to getting the shots, Doc.", non-insulin dependent DM2 x 4 years with long-term glycemic control poor as manifested by HbA1c 8.1% (05/04/2025, 6:19am), on home-scheduled metformin 1000mg PO bid and empagliflozin 25mg PO qam, HTN on lasix 20mg PO qam, isosorbide mononitrate 60mg PO qam, lisinopril 5mg P qam, and metoprolol tartrate 50mg PO bid, CAD s/p acute NSTEMI #1 (2017), no intervention, s/p acute NSTEMI #2 (2018), s/p stents x 2 in LAD, s/p acute NSTEMI #3 (2019), no intervention, now on home-scheduled atorvastatin 80mg PO qhs and plavix 75mg PO daily, 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[employer], 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, 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, at least 3,000 miles per week, ~120,000- 150,000 miles per year)) from his hometown of [place], [place], for approximately 4 hours (on 05/03/2025) on route [address], while en route to [place], [place], with a goal of dropping off a 47,000 pounds supply of plastic pellets (from which [employer] plastic bottles will be made, and which he had loaded onto his [employer] truck himself on 05/02/2025 using a hydraulic pump over a 2 hour period), when he started to notice a "small ache in my chest and I didn't think much about it, so I just kept driving on, and then about 2 hours later, I felt all of a sudden this crushing pain right in the middle of my chest which I couldn't ignore", and which the patient further describes as being non- traumatic, non-radiating, non-exertional, non-positional, non-pleuritic, non- prandial, zrx-jlqu-zjddhoou, rated 10+ (on a 10 point intensity scale of pain), with concomitant shortness of breath, blurry vision, and nausea, but no cough, wheeze, hemoptysis, sore throat, diplopia, headache, weakness, vomiting/diarrhea/abdominal pain, fevers/chills/diaphoresis. Patient reports that tolerated the substernal chest pain for approximately 1 hour, and then the patient could drive no further. Patient subsequently left [address] and took [address] ([place]), and came to a rest stop and took ASA 324mg PO x 1 dose (05/03/2025, 8:50am) and 2 NTG tablets (05/03/2025, 8:51am) to no avail. Patient then called 911 for help. EMS arrived to the patient on 05/03/2025, 8:56am, and gave the patient 15 liters/minute O2 via non-rebreather face mask (05/03/2025, 8:57am). Patient still reported 10+ (on a 10 point intensity scale of pain) pain in the substernal area; patient subsequently received morphine sulfate 4mg IV x 1 dose (05/03/2025, 9:14am) and reported almost immediate/partial relief in his substernal chest pain with the pain subsiding from a 10+ to a 4 (on a 10 point intensity scale of pain). Patient then complained of nausea; patient subsequently received zofran 4mg IV x 1 dose (05/03/2025, 9:15am) and reported almost immediate/complete relief in his nausea. Patient then asked EMS to remove the 15 liters/minute O2 via non-rebreather face mask due to discomfort with non-rebreather face mask. Patient subsequently took off the non-rebreather face mask; patient subsequently received 6 liters/minute O2 via nasal cannula. EMS subsequently arrived with the patient at [facility] ER on 05/03/2025, 9:31am for further evaluation. Patient was subsequently placed in OBSERVATION on the hospitalist service @ [facility] on 05/03/2025 with the following diagnoses: 1. Chest pain, R/O acute NE. 2. Acute hypovolemic hyponatremia with admission Na 134 mmol/L (05/03/2025, 9:46am). Initial Plan in [facility] ER included: Chest pain rule out NE High risk story and history however two negative troponins, normal EKG with hours of chest pain is reassuring but still could be unstable angina especially given lack of alternative diagnosis ASA given by EMS, continue daily along with his usual clopidogrel Continue metoprolol, ISMN and atorvastatin, currently unable to tolerate nitro paste due to hypotension Serial troponin, TTE, Lipid panel and HbA1C with AM labs Currently pain free when seen Consult cardiology #Hypertension No change to home regimen of lisinopril, ISMN, metoprolol and furosemide #T2DM HbA1C with AM labs Continue Jardiance, hold metformin due to IV contrast given Novolog for correction only --Goal BSG Range: Low 110 mg/dL, High 140 mg/dL --Correction Factor: 45 mg/dL/unit No carb ratio --BSGs ACHS if eating, q6h if npo #Leucocytosis / History of splenectomy Suspect this is stress demargination and should normalize by tomorrow, no infective symptoms/signs found VTE Prophylaxis - deferred pending repeat troponins Disposition - observation to PCU Admission and Anticipated Discharge Date Admission Date: May 03, 2025 Subjective "I still have a little bit of chest pain in the middle of my chest. It's a 1 (out of 10 point intensity scale) pain now. It's dull. It doesn't go anywhere. Just stays in the middle of my chest. Review of Systems Constitutional: Positive for substernal chest pain, not reproducible on palpation of chest. Negative for antecedent/coincident fevers, chills, diaphoresis, cough, wheeze, sore throat, hemoptysis, palpitations, pleurisy, nausea, vomiting, diarrhea, abdominal pain, pelvic pain, hematemesis, hematochezia, melena, hematuria, dysuria, frequency, urgency, headaches, dizziness, lightheadedness, visual changes, hearing changes, weakness, falls, syncope, trauma, travel history, sick contacts, or food/drug ingestions novel or new. All other review of systems are reported as negative by the patient on 05/05/2025. Physical Exam Constitutional: General: Comfortable, coherent, and cooperative. Not confused or obtunded, but lethargic. Patient speaks very slowly, but in complete, fluent, and articulate 3-5 word sentences without pause, interruption, cough, or wheeze with O2 sat 94% on room air (05/04/2025, 6:00pm). HEENT: Normocephalic, atraumatic. No nystagmus, gaze paresis, anisocoria, miosis, mydriasis, hyphema, scleral injection, conjunctivitis, or pterygium. No lid lag. No proptosis/exophthalmos. No otorrhea or rhinorrhea. No pharyngeal erythema, edema, or discharge. Neck: Supple, no stridor, bruit, goiter, or hepato-jugular reflux. Jugular venous pressure is estimated to be 3 cm above the sternal angle of Jeremy, which in turn, is 5 cm above the level of the right atrium; with jugular venous pressure estimated to be 8 cm, then, there is no jugular venous distention on 05/05/2025. Lymphatics: No cervical (anterior/posterior), supraclavicular, infraclavicular, axillary, epitrochlear, or inguinal adenopathy. Chest: Symmetric rise and fall with respirations. Non-tender to palpation. Lungs: Clear to auscultation and percussion. No audible expiratory wheeze, egophony, pectoriloquy, increase in tactile fremitus, or flatness/dullness to percussion at the bases. Heart: Regular rate and rhythm. S1 and S2 noted. No S3 or S4 summation gallop. No tripartite friction rub. Grade II/ early systolic murmur @ LLSB without radiation to the carotids, axilla, or back, and which remains invariant in regards to the respiratory cycle. Abdomen: Soft, non-tender, non-distended. No rebound, guarding, Nash's sign, or organomegaly. Bowel sounds auscultated in all 4 quadrants. Extremities: No clubbing, cyanosis, or edema. Skin: No decubitus ulcer, exanthem, or enanthem. Urology: No srivastava catheter. No urethral discharge. Psychiatry: No suicidal ideation. No anxiety. No insomnia. Smiles christine ropriately. Results & Data Results & Data Vital Signs (Past 12 Hours) Vital Signs Temp Pulse Pulse Resp BP BP Pulse Ox 05/05/25 18:00 140/81 05/05/25 17:45 81 19 05/05/25 17:03 85 05/05/25 17:01 119/73 05/05/25 17:00 81 12 05/05/25 16:51 94 H 22 05/05/25 16:12 77 37 H 94 05/05/25 16:00 94/62 L 05/05/25 15:45 99/60 L 05/05/25 15:30 90/63 L 05/05/25 15:15 89/66 L 05/05/25 15:00 94/60 L 05/05/25 15:00 05/05/25 14:57 75 92 05/05/25 14:45 99/61 L 05/05/25 14:42 79 93 05/05/25 14:33 78 93 05/05/25 14:30 106/60 05/05/25 14:09 74 16 92 05/05/25 14:00 82 90 05/05/25 14:00 93/59 L 05/05/25 13:54 84 6 L 91 05/05/25 13:53 97/62 L 05/05/25 13:53 97/62 L 05/05/25 13:51 78 92 05/05/25 13:30 89 82/57 L 05/05/25 13:16 86 16 91/60 L 94 05/05/25 12:43 70 16 111/61 95 05/05/25 12:25 37 C 86 16 90/59 L 95 05/05/25 11:33 36.6 C 85 21 100/63 97 05/05/25 08:08 36 C L 87 20 118/72 96 05/05/25 07:54 Pulse Ox O2 Del Method O2 Del Method 05/05/25 18:00 05/05/25 17:45 05/05/25 17:03 05/05/25 17:01 05/05/25 17:00 05/05/25 16:51 05/05/25 16:12 05/05/25 16:00 05/05/25 15:45 05/05/25 15:30 05/05/25 15:15 05/05/25 15:00 05/05/25 15:00 94 Room Air 05/05/25 14:57 Room Air 05/05/25 14:45 05/05/25 14:42 05/05/25 14:33 Room Air 05/05/25 14:30 05/05/25 14:09 05/05/25 14:00 05/05/25 14:00 05/05/25 13:54 05/05/25 13:53 05/05/25 13:53 05/05/25 13:51 Room Air 05/05/25 13:30 05/05/25 13:16 Room Air 05/05/25 12:43 Room Air 05/05/25 12:25 Room Air 05/05/25 11:33 Room Air 05/05/25 08:08 Room Air 05/05/25 07:54 Room Air Laboratory Results WBC 17.23, N79 L13 M 6 B1, Hb 17.3, MCV 83.5, MCHC 37.0, platelet count 597 (05/03/2025, 9:46am). WBC 15.55, N65 L21 M10 E2 B1, Hb 17.1, MCV 85.9, MCHC 37.3, platelet count 544 (05/04/2025, 6:19am). Na 134, K 4.5, BUN 15, creatinine 0.91, glucose 283, Ca 9.1 (05/03/2025, 9:46am). Na 137, K 4.1, BUN 20, creatinine 1.01, glucose 150, Ca 8.1 (05/04/2025, 6:19am). Troponin-I #1 5.0 pg/mL (05/03/2025, 9:46am). Troponin-I #2 6.1 pg/mL (05/03/2025, 11:35am). Troponin-I #3 156.3 pg/mL (05/03/2025, 5:34pm). Troponin-I #4 2,589.3 pg/mL (05/04/2025, 12:08am). Troponin-I #5 5,183.0 pg/mL (05/04/2025, 6:19am). Troponin-I #6 (05/04/2025, 4:43pm). Fasting lipid profile: total cholesterol 185, LDL 102, HDL 58, triglyceride 124 (05/04/2025, 6:19am). Diagnostic Findings CTA chest #1 (05/03/2025, 10:35am): 1. No pulmonary emboli identified. 2. No acute intrathoracic findings. 3. Mild cardiomegaly. 4. 4 mm subpleural right middle lobe nodule. This is likely benign. A chest CT in 6 months to ensure stability is recommended. The possible left lower lung nodule on chest radiograph from earlier today was artifactual. CTA chest (05/03/2025, 11:45am): 1. No thoracic aortic dissection. Normal caliber thoracic aorta. 2. Mild cardiomegaly. 3. No consolidation to suggest pneumonia. EKG #1 (05/03/2025, 9:38am): NSR @ 77, PA 202, QTC 466, no ST elevation; no ST depression; + TWI in aVL; no q waves (by my review). EKG #2 (05/03/2025, 10:06am): NSR @ 65, PA 196, QTC 434, no ST elevation; no ST depression; no TWI; no q waves (by my review). EKG #3 (05/03/2025, 10:24am): sinus christine @ 54, PA 190, QTC 411, [address] elevation in I, aVL; no ST depression; no TWI; no q waves (by my review). EKG #4 (05/04/2025, 5:43am): NSR @ 62, PA 188, QTC 420, no ST elevation; no ST depression; no TWI; no q waves (by my review). TTE (05/03/2025, 1:04pm): 1. LVEF 55-60%. LV wall motion normal. 2. RV normal size and function. 3. LA/RA sizes normal. 4. No . No AR. 5. PV not well visualized. 6. No MR. 7. Mild TR with RVSP 30-40 mm Hg. 8. Aortic root normal size. IVC mildly dilated. 9. No pericardial effusion. (as per CARDS Dr. Gerry Alvarez). TTE (05/05/2025, 2:54pm): 1. LVEF 55-60%. Robert-apical vee are hypokinetic and similar to prior 05/03, 1:04pm TTE. 2. LV normal size with mild concentric LVH. (as per CARDS Dr. Sima Brantley). Cardiac catheterization (05/05/2025, 12:26pm): Coronary angiography findings: FHW-aoorb-ggskbxm vessel bifurcating into LAD and circumflex. Mild luminal irregularities. XQY-flqwf-zocijyj vessel. Proximal stent is patent except for in the early to mid segment where there is in-stent restenosis and haziness (calcification?) of up to 70% stenosed. ILIANA II flow beyond the stent. LAD gives a large septal branch, a medium caliber first diagonal which has ostial 70% stenosis and then a large branching second diagonal. Mild scattered disease less than 30% in this vessel. The distal LAD is actually smaller in caliber than the diagonal and has mild luminal irregularities. LCx-this is large caliber and nondominant. Proximal segment without disease. Provides a branching OM1 which has proximal 70% stenosis but is less than 2 mm in diameter. The mid circumflex in the AV groove has calcified 50 to 60% stenosis. It then provides a medium caliber posterolateral before it ends distally. PLB has no disease. RCA-this is large caliber and dominant. Proximally there is diffuse 20% stenosis, in the mid and distal RCA have mild luminal irregularities. The vessel then bifurcates into a large PDA and a large branching posterolateral. PDA has diffuse less than 20% stenosis. Posterior lateral has mild luminal irregularities. PCI of LAD-there is 0% residual stenosis post PCI ILIANA-3 flow post PCI No evidence of dissection or perforation post PCI IVUS evaluation consistent with good apposition and no complications. Summary: 1. Severe in-stent restenosis of prior proximal LAD stent. This is the culprit for his chest pain and elevated troponin. 2. Successful PCI with implantation of a large caliber drug-eluting stent covering the ostial through proximal LAD. 3. Patient shall remain on dual antiplatelet therapy with aspirin and Plavix for at least 1 to 2 years. I would also recommend indefinite use given the location and extent of stenting to that vessel. 4. Guideline directed medical therapy for secondary prevention of coronary disease ongoing with atorvastatin, lisinopril, and beta-priscilla. (as per Interventional CARDS Dr. Houston Ribeiro). PG Care Time/CCT Total # of Minutes Spent Total Time Spent with Patient: Total time spent is greater than 50% in coordination of care (as documented) at patient's floor/unit and/or counseling patient: Coding Level of Care Code 39355 SUB INP/OBS CARE 2/35MIN Diagnoses Chest pain, rule out acute myocardial infarction R07.9 History of myocardial infarction I25.2 Type 2 diabetes mellitus E11.9 Hereditary spherocytosis D58.0 History of splenectomy Z90.81
[2025-05-06 07:03] LABS: Anion Gap 9.0 (3-11); Blood Urea Nitrogen 16.0 mg/dl (6-23); Calcium 8.5 mg/dl (8.6-10.3); Carbon Dioxide 25.0 mmol/L (21-32); Chloride 104.0 mmol/L (98-107); Creatinine Clr Calc Pharmacy 123.1 ml/min; Glucose 108.0 mg/dl (70-99(Fasting)); Potassium 4.0 mmol/L (3.5-5.1); Sodium 138.0 mmol/L (136-145)
[2025-05-06 08:13] LABS: Acanthocytes 2+; Hematocrit (blood only) 42.3 % (42.0-52.0); Hemoglobin 15.0 g/dl (14.0-18.0); Immature Granulocytes # (auto) 0.12 K/uL (0.01-0.20); Immature Granulocytes % (auto) 1.0 %; Mean Corpuscular Hemoglobin 31.6 pg (25.0-34.0); Mean Corpuscular Volume 85.1 fL (80.0-100.0); Platelet Count 563 K/uL (130-400); Polychromasia 1+; RDW Standard Deviation 38.2 fL (36.4-46.3); Red Blood Count 4.97 M/uL (4.70-6.10); White Blood Count 12.50 K/ul (4.8-10.8)
--- NOTE | 2025-05-06 10:39 | Electrocardiogram Report ---
Test Reason : Blood Pressure : */* mmHG Vent. Rate : 69 BPM Atrial Rate : 69 BPM P-R Int : 192 ms QRS Dur : 100 ms QT Int : 380 ms P-R-T Axes : 54 53 40 degrees QTcB Int : 407 ms Normal sinus rhythm ST elevation, consider early repolarization, pericarditis, or injury Abnormal ECG When compared with ECG of 04-May-2025 05:43, Nonspecific T wave abnormality, worse in Lateral leads Confirmed by Brian Gambino ([id number]) on 05/06/2025 10:38:51 AM Referred By: REFERRED SELF Confirmed By: Brian Gambino
[2025-05-06 11:49] VITALS: BP 113/72; PULSE 69; RESP 20; TEMP 98.1; O2SAT 96
--- NOTE | 2025-05-06 12:14 | Discharge Summary ---
Discharge Summary Date of Service May 06, 2025 Principal Dx & Hospital Course #1 = Principal Diagnosis (1) Chest pain, rule out acute myocardial infarction: cf., Troponin-I #1 5.0 pg/mL (05/03/2025, 9:46am). cf., Troponin-I #2 6.1 pg/mL (05/03/2025, 11:35am). cf., Troponin-I #3 156.3 pg/mL (05/03/2025, 5:34pm). cf., Troponin-I #4 2,589.3 pg/mL (05/04/2025, 12:08am). cf., Troponin-I #5 5,183.0 pg/mL (05/04/2025, 6:19am). cf., Troponin-I #6 8,746.3 pg/mL (05/05/2025, 4:57pm). cf., EKG #1 (05/03/2025, 9:38am): NSR @ 77, SC 202, QTC 466, no ST elevation; no ST depression; + TWI in aVL; no q waves (by my review). cf., EKG #2 (05/03/2025, 10:06am): NSR @ 65, SC 196, QTC 434, no ST elevation; no ST depression; no TWI; no q waves (by my review). cf., EKG #3 (05/03/2025, 10:24am): sinus christine @ 54, SC 190, QTC 411, [address] elevation in I, aVL; no ST depression; no TWI; no q waves (by my review). cf., EKG #4 (05/04/2025, 5:43am): NSR @ 62, SC 188, QTC 420, no ST elevation; no ST depression; no TWI; no q waves (by my review). cf., TTE (05/03/2025, 1:04pm): 1. LVEF 55-60%. LV wall motion normal. 2. RV normal size and function. 3. LA/RA sizes normal. 4. No . No AR. 5. PV not well visualized. 6. No MR. 7. Mild TR with RVSP 30-40 mm Hg. 8. Aortic root normal size. IVC mildly dilated. 9. No pericardial effusion. (as per CARDS Dr. Gerry Alvarez). While the [address] elevation in I, aVL (as noted on 05/03/2025, 10:24am EKG #3) has resolved, and while TTE (05/03/2025, 1:04pm) revealed no LV wall motion abnormalities to suggest acute myocardial ischemia, patient's troponin-I levels continued to increase, not having yet reached a peak/plateau, and patient still reported a constant ache in the substernal region, rated a 1 (out of 10 point intensity scale). Hence, concern for acute lateral wall STEMI remained. To this end, patient continued with school lunch monitor, serial troponin level testing (to identify a peak/plateau level), CHITRA (morphine, O2, NTG, ASA), plavix 75mg PO daily, high- intensity statin dose of atorvastatin 80mg PO qhs, metoprolol tartrate 50mg PO bid, isosorbide mononitrate 60mg PO qam, and lisinopril 5mg PO qam. In addition, patient initially started with lovenox 100mg (1mg/kg SQ q12) SQ x 1 dose (05/03/2025, 7:53pm) in [facility] ER. Patient subsequently transitioned to heparin infusion (05/04/2025, 7:00pm) in [facility] Tele bed #E206-1, as patient underwent: (A) Cardiac catheterization (05/05/2025, 12:26pm): Coronary angiography findings: FYD-xhxls-drewmpi vessel bifurcating into LAD and circumflex. Mild luminal irregularities. SWB-jqfiv-btajwne vessel. Proximal stent is patent except for in the early to mid segment where there is in-stent restenosis and haziness (calcification?) of up to 70% stenosed. ILIANA II flow beyond the stent. LAD gives a large septal branch, a medium caliber first diagonal which has ostial 70% stenosis and then a large branching second diagonal. Mild scattered disease less than 30% in this vessel. The distal LAD is actually smaller in caliber than the diagonal and has mild luminal irregularities. LCx-this is large caliber and nondominant. Proximal segment without disease. Provides a branching OM1 which has proximal 70% stenosis but is less than 2 mm in diameter. The mid circumflex in the AV groove has calcified 50 to 60% stenosis. It then provides a medium caliber posterolateral before it ends distally. PLB has no disease. RCA-this is large caliber and dominant. Proximally there is diffuse 20% stenosis, in the mid and distal RCA have mild luminal irregularities. The vessel then bifurcates into a large PDA and a large branching posterolateral. PDA has diffuse less than 20% stenosis. Posterior lateral has mild luminal irregularities. PCI of LAD-there is 0% residual stenosis post PCI ILIANA-3 flow post PCI No evidence of dissection or perforation post PCI IVUS evaluation consistent with good apposition and no complications. Summary: 1. Severe in-stent restenosis of prior proximal LAD stent. This is the culprit for his chest pain and elevated troponin. 2. Successful PCI with implantation of a large caliber drug-eluting stent covering the ostial through proximal LAD. 3. Patient shall remain on dual antiplatelet therapy with aspirin and Plavix for at least 1 to 2 years. I would also recommend indefinite use given the location and extent of stenting to that vessel. 4. Guideline directed medical therapy for secondary prevention of coronary disease ongoing with atorvastatin, lisinopril, and beta-priscilla. (as per Interventional CARDS Dr. Houston Ribeiro). (B) TTE (05/05/2025, 2:54pm): 1. LVEF 55-60%. Robert-apical vee are hypokinetic and similar to prior 05/03/2025, 1:04pm TTE. 2. LV normal size with mild concentric LVH. (as per CARDS Dr. Sima Brantley). Patient has no hematoma @ right radial artery catheterization site. Patient was subsequently discharged back to his home in [place], [place] in the 05/06/2025 am with an [employer] rental car awaiting patient in 05/06/2025 am, whereupon, patient will drive himself home to [place], [place]. Patient reports that he will follow up with his own CARDS Dr. Pablo Murphy ([place], [place]) on 05/09/2025 am. In the interim, patient will continue with: 1. ASA 81mg PO daily. 2. Plavix 75mg PO daily. 3. Atorvastatin 80mg PO qhs. 4. Metoprolol tartrate 50mg PO bid. 5. Lisinopril 5mg PO qam. 6. NTG 0.4mg SL q5 minutes prn chest pain (max of 3 tablets in 15 minutes). Of these 6 medications, patient's [facility] ([address] [place] [id number]) received electronic prescriptions for: 1. ASA 81mg PO daily, #30 tablets, no refills. 2. NTG 0.4mg SL q5 minutes prn chest pain (max of 3 tablets in 15 minutes), #25 tablets, no refills. (2) History of myocardial infarction: CAD s/p acute NSTEMI #1 (2017), no intervention, s/p acute NSTEMI #2 (2018), s/p stents x 2 in LAD, s/p acute NSTEMI #3 (2019), no intervention, now on home- scheduled atorvastatin 80mg PO qhs and plavix 75mg PO daily. s/p ASA 324mg PO x 1 dose (05/03/2025, 8:50am) administered by the patient himself while in his 18 wheel [employer] truck. Patient received ASA 81mg PO daily while [facility], along with patient's home-scheduled atorvastatin 80mg PO qhs and plavix 75mg PO daily, to provide secondary prophylaxis against CAD. Patient will continue all 3 medications on hospital discharge home ([place], [place]) on 05/06/2025. (3) Type 2 diabetes mellitus: Non-insulin dependent DM2 x 4 years with long-term glycemic control poor as manifested by HbA1c 8.1% (05/04/2025, 6:19am), on home-scheduled metformin 1000mg PO bid and empagliflozin 25mg PO qam. Hold OFF home-scheduled metformin 1000mg PO bid while patient remains in [facility] in order to avoid the potential development of post-IV contrast nephropathy as patient had already undergone CTA chest #1 (05/03/2025, 10:35am and CTA chest (05/03/2025, 11:45am), and underwent cardiac catheterization (during which procedure patient was exposed to IV contrast)(05/05/2025, 12:26pm). In fact, patient should not resume his home-scheduled metformin 1000mg PO bid for at least 72 hours from his last exposure to IV contrast while in [facility]. In the interim, patient continued to receive a carbohydrate consistent diet, home-scheduled empagliflozin 25mg PO qam, lispro insulin sliding scale qac + qhs, and POC glucose qac + qhs. Patient will continue with carbohydrate consistent diet, home-scheduled empagliflozin 25mg PO qam, and POC glucose qac + qhs on hospital discharge home ([place], [place]) on 05/06/2025. Patient will not continue with lispro insulin sliding scale qac + qhs on hospital discharge home ([place], [place]) on 05/06/2025. Patient will also hold off his home-scheduled metformin 1000mg PO bid until 05/08/2025, 12:27pm, at which point, patient can resume his home-scheduled metformin 1000mg PO bid. Patient reports that he will comply with this recommendation. (4) Hereditary spherocytosis: Patient has a past medical history of hereditary spherocytosis, for which patient underwent splenectomy (1985) with subsequent development of chronic leukocytosis, and which is attributed to lymphocyte redistribution from the fq-kxbybd-lbbvfgd spleen (which is a reservoir for up to 25% of all lymphocytes in the human body) to the peripheral blood, s/p incomplete vaccination schedule [with regards to the 3 principal encapsulated organisms (e.g., Streptococcus pneumoniae, Haemophilus influenzae, and Neisseria meningitidis) that an asplenic patient's macrophages are incapable of opsonizing efficiently] including s/p Prevnar 20, but lacking Pneumovax 23, and otherwise naive with respect to vaccination against the other two encapsulated organisms including Haemophilus influenzae type B and Neisseria meningitidis, as patient concedes "I never got around to getting the shots, Doc." Patient was subsequently advised to follow up with his PCP in his hometown [place], [place], upon his return to [place], to coordinate vaccinations against 3 principal encapsulated organisms (e.g., Streptococcus pneumoniae, Haemophilus influenzae, and Neisseria meningitidis) that an asplenic patient's macrophages are incapable of opsonizing efficiently], including Pneumovax 23 (against Streptococcus pneumoniae, HiB against Haemophilus influenzae type B, MenACWY, and MenB (against Neisseria meningitidis). Patient reports "I will think about it." (5) History of splenectomy: See bullet #4 above for details. Plan 59 years old male with PMH of DNR/DNI @ home, obesity with BMI 31.3 (height 182.9 cm; weight 104.6 kg), former tobacco abuse with no subsequent diagnosis of COPD, not on home O2 or home steroids, hereditary spherocytosis, s/p splenectomy (1985) with subsequent development of chronic leukocytosis, attributed to lymphocyte redistribution from the cp-ibuuxp-tmwulpg spleen (which is a reservoir for up to 25% of all lymphocytes in the human body) to the peripheral blood, s/p incomplete vaccination schedule [with regards to the 3 principal encapsulated organisms (e.g., Streptococcus pneumoniae, Haemophilus influenzae, and Neisseria meningitidis) that an asplenic patient's macrophages are incapable of opsonizing efficiently] including s/p Prevnar 20, but lacking Pneumovax 23, and otherwise naive with respect to vaccination against the other two encapsulated organisms including Haemophilus influenzae type B and Neisseria meningitidis, as patient concedes "I never got around to getting the shots, Doc.", non-insulin dependent DM2 x 4 years with long-term glycemic control poor as manifested by HbA1c 8.1% (05/04/2025, 6:19am), on home-scheduled metformin 1000mg PO bid and empagliflozin 25mg PO qam, HTN on lasix 20mg PO qam, isosorbide mononitrate 60mg PO qam, lisinopril 5mg P qam, and metoprolol tartrate 50mg PO bid, CAD s/p acute NSTEMI #1 (2017), no intervention, s/p acute NSTEMI #2 (2018), s/p stents x 2 in LAD, s/p acute NSTEMI #3 (2019), no intervention, now on home-scheduled atorvastatin 80mg PO qhs and plavix 75mg PO daily, 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[employer], 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, 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, at least 3,000 miles per week, ~120,000- 150,000 miles per year)) from his hometown of [place], [place], for approximately 4 hours (on 05/03/2025) on [address], while en route to [place], [place], with a goal of dropping off a 47,000 pounds supply of plastic pellets (from which [employer] plastic bottles will be made, and which he had loaded onto his tanker truck himself on 05/02/2025 using a hydraulic pump over a 2 hour period), when he started to notice a "small ache in my chest and I didn't think much about it, so I just kept driving on, and then about 2 hours later, I felt all of a sudden this crushing pain right in the middle of my chest which I couldn't ignore", and which the patient further describes as being non- traumatic, non-radiating, non-exertional, non-positional, non-pleuritic, non- prandial, mkj-dfik-lfoexmqs, rated 10+ (on a 10 point intensity scale of pain), with concomitant shortness of breath, blurry vision, and nausea, but no cough, wheeze, hemoptysis, sore throat, diplopia, headache, weakness, vomiting/diarrhea/abdominal pain, fevers/chills/diaphoresis. Patient reports that tolerated the substernal chest pain for approximately 1 hour, and then the patient could drive no further. Patient subsequently left [address] and took [address] ([place]), and came to a rest stop and took ASA 324mg PO x 1 dose (05/03/2025, 8:50am) and 2 NTG tablets (05/03/2025, 8:51am) to no avail. Patient then called 911 for help. EMS arrived to the patient on 05/03/2025, 8:56am, and gave the patient 15 liters/minute O2 via non-rebreather face mask (05/03/2025, 8:57am). Patient still reported 10+ (on a 10 point intensity scale of pain) pain in the substernal area; patient subsequently received morphine sulfate 4mg IV x 1 dose (05/03/2025, 9:14am) and reported almost immediate/partial relief in his substernal chest pain with the pain subsiding from a 10+ to a 4 (on a 10 point intensity scale of pain). Patient then complained of nausea; patient subsequently received zofran 4mg IV x 1 dose (05/03/2025, 9:15am) and reported almost immediate/complete relief in his nausea. Patient then asked EMS to remove the 15 liters/minute O2 via non-rebreather face mask due to discomfort with non-rebreather face mask. Patient subsequently took off the non-rebreather face mask; patient subsequently received 6 liters/minute O2 via nasal cannula. EMS subsequently arrived with the patient at [facility] ER on 05/03/2025, 9:31am for further evaluation. Patient was subsequently placed in OBSERVATION on the hospitalist service @ [facility] on 05/03/2025 with the following diagnoses: 1. Chest pain, R/O acute NM. 2. Acute hypovolemic hyponatremia with admission Na 134 mmol/L (05/03/2025, 9:46am). Initial Plan in [facility] ER included: Chest pain rule out NM High risk story and history however two negative troponins, normal EKG with hours of chest pain is reassuring but still could be unstable angina especially given lack of alternative diagnosis ASA given by EMS, continue daily along with his usual clopidogrel Continue metoprolol, ISMN and atorvastatin, currently unable to tolerate nitro paste due to hypotension Serial troponin, TTE, Lipid panel and HbA1C with AM labs Currently pain free when seen Consult cardiology #Hypertension No change to home regimen of lisinopril, ISMN, metoprolol and furosemide #T2DM HbA1C with AM labs Continue Jardiance, hold metformin due to IV contrast given Novolog for correction only --Goal BSG Range: Low 110 mg/dL, High 140 mg/dL --Correction Factor: 45 mg/dL/unit No carb ratio --BSGs ACHS if eating, q6h if npo #Leucocytosis / History of splenectomy Suspect this is stress demargination and should normalize by tomorrow, no infective symptoms/signs found VTE Prophylaxis - deferred pending repeat troponins Disposition - observation to PCU Admission HPI Per Admitting Provider Tony Be is a 59 year old male who presents to the ER with chest pain. 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 when he started to get cold sweats and just didn't feel right. He then started having chest pressure, not really painful in substernal region, aching feeling which was progressively getting worse. This occurred while driving and after getting to rest area he started getting clammy and it was radiating down left arm which was tingling with a generalized weakness. The pain lasted for an hour while waiting for the ambulance and only started to subside around noon. x2 nitroglycerin did not appear to help. EMS gave aspirin, ondansetron and morphine which he also reports didn't help. The pain is non pleuritic, no worse on exertion and not positional. He reports it felt like his prior heart attacks and angina. Information limited to patient recollection but he reports being hospitalized for angina/NM in 2017, 2018 and 2019 in either [place] or [place], [place]. On the second occasion he received 2 stent to LAD and the 3rd occasion he just has balloon angioplasty. He has a sheet of medications but it is years old and reports no longer being on aspirin and ticagrelor and he is only currently taking clopidogrel for antiplatelet. He reports taking all of his morning medications. His current brim pouncer is Dr Murphy from [place], [place]. Prior to this episode he reports he was feeling well. No fever or chills. No respiratory, urinary or gastrointestinal symptoms. No history of reflux or acid taste in his mouth. He notes having diabetes with prior HbA1C 6.4 in January 2025. He report he does not wish me to inform his family at this time. Discharge Exam Constitutional General: Comfortable, coherent, and cooperative. Not confused or obtunded, but lethargic. Patient speaks very slowly, but in complete, fluent, and articulate 3-5 word sentences without pause, interruption, cough, or wheeze with O2 sat 96% on room air (05/05/2025, 11:59am). HEENT: Normocephalic, atraumatic. No nystagmus, gaze paresis, anisocoria, miosis, mydriasis, hyphema, scleral injection, conjunctivitis, or pterygium. No lid lag. No proptosis/exophthalmos. No otorrhea or rhinorrhea. No pharyngeal erythema, edema, or discharge. Neck: Supple, no stridor, bruit, goiter, or hepato-jugular reflux. Jugular venous pressure is estimated to be 3 cm above the sternal angle of Jeremy, which in turn, is 5 cm above the level of the right atrium; with jugular venous pressure estimated to be 8 cm, then, there is no jugular venous distention on 05/06/2025. Lymphatics: No cervical (anterior/posterior), supraclavicular, infraclavicular, axillary, epitrochlear, or inguinal adenopathy. Chest: Symmetric rise and fall with respirations. Non-tender to palpation. Lungs: Clear to auscultation and percussion. No audible expiratory wheeze, egophony, pectoriloquy, increase in tactile fremitus, or flatness/dullness to percussion at the bases. Heart: Regular rate and rhythm. S1 and S2 noted. No S3 or S4 summation gallop. No tripartite friction rub. Grade II/ early systolic murmur @ LLSB without radiation to the carotids, axilla, or back, and which remains invariant in regards to the respiratory cycle. Abdomen: Soft, non-tender, non-distended. No rebound, guarding, Nash's sign, or organomegaly. Bowel sounds auscultated in all 4 quadrants. Extremities: No clubbing, cyanosis, or edema. Skin: No decubitus ulcer, exanthem, or enanthem. Urology: No srivastava catheter. No urethral discharge. Psychiatry: No suicidal ideation. No anxiety. No insomnia. Smiles appropriately. Discharge Plan Discharge Items Patient Disposition: Home - Self-Care Reason For Visit: CHEST PAIN CONCERING FOR ACS Discharge Diagnosis: severe CAD s/p PCI proximal LAD HLD DMII Condition on Discharge: Fair Activity: Per Instructions section Activity Comment: See your CARDS Dr. Pablo Murphy ([place], [place]) on 05/09/2025. Lifting: Gradually increase as tolerated Bathing: No limitations Sexual Activity: Wait until after follow-up appointment Exercise/Sports: Wait until after follow-up appointment Exercise Comment: See your CARDS Dr. Pablo Murphy ([place], [place]) on 05/09/2025. Weightbearing: Full weightbearing Non-emergency contact: Primary Care Provider and [employer] W[employer] Call non-emergency contact if: you have any medication questions, your symptoms worsen, your pain is not controlled, you have a fever, your wound has increased redness and your wound has increased drainage Follow-up/Referrals: PCP,NO [Primary Care Provider] - Diet: Carb Consistent or DM2 and Heart Healthy Addtl Attending Provider Instructions: ACTIVITY RECOMMENDATIONS: It is common to feel weak and fatigue for a few days. * Do not drive or operate any motorized equipment for the next three days. * Limit stair usage (2 or 3 trips a day only) for the next three days. * Do not lift anything heavier than 10 pounds for the next three days. * Do not engage in vigorous exercise or any sports for the next five days. * You may shower the day after your procedure, but do not immerse the area for three days. Cleanse the site gently with soap and water. SPECIAL CARE INSTRUCTIONS: * You may replace the pressure dressing or band-aid the morning after the procedure. * After your procedure, it is normal to have a small bruise or small lump at the site. Examine your site daily for any change in the bruise or lump, redness, swelling, drainage or numbness. Notify your doctor if any change. BLEEDING: * If there is a small amount of bleeding at the site, lie down and apply firm pressure with a clean cloth for ten minutes. When the bleeding stops, lie quietly keeping the procedure limb straight for six hours. Notify your doctor as soon as possible. * If the bleeding does not stop after ten minutes or if there is a large amount of bleeding or spurting, call 911 immediately. Continue to lie down and hold firm pressure until help arrives. SKIN IRRITATION: * You may experience some redness and/or swelling in the area where radiation was administered. If any skin irritation occurs, please contact your family phys ician. FOLLOW UP VISIT: Keep any scheduled doctor appointments. Pending Studies at Discharge: No Stand-Alone Forms: [facility], Smoking Cessation Medications and DC Order Prescriptions: New aspirin 81 mg Tablet,Delayed Release (Dr/Ec) 81 mg PO QAM Qty: 30 0RF nitroglycerin [Nitrostat] 0.4 mg Tablet, Sublingual 0.4 mg sublingual Q5M PRN (Reason: chest pain) Qty: 25 0RF Continued isosorbide mononitrate 60 mg tablet extended release 24 hr 60 mg PO QAM metoprolol tartrate 50 mg tablet 50 mg PO BID nitroglycerin 0.4 mg tablet, sublingual 0.4 mg sublingual DIRECTED PRN (Reason: Chest Pain) lisinopril 5 mg tablet 5 mg PO QAM Jardiance 25 mg tablet 25 mg PO QAM atorvastatin 80 mg Tablet 80 mg PO HS clopidogrel 75 mg Tablet 75 mg PO DAILY furosemide 20 mg Tablet 20 mg PO QAM Held metformin 1,000 mg tablet 1,000 mg PO BID Hold Instructions: Resume on 05/07/25. may restart am dose on 05/07 Discharge Orders: Discharge Order (Routine); Ordered 05/06/25 Ordered By: Herminio Osorio/Other Patient Handouts: Managing Type 2 Diabetes Admission Data Admit Date/Time: 05/05/25 19:55 Attending Provider: Herminio Carreon Admit Provider: Luis Valle Primary Care Provider: PCP,LASHAWN Other Providers: Luis Valle; Gerry Alvarez Hospital Stay Data Consultations 05/03/25 12:47 ED Decision to Admit Stat 05/03/25 12:55 Consult Cardiology Routine Procedures Performed Operation Date: 05/05/25 10:00 Actual Procedures p Cath, Coronaries ONLY (no LV) - Houston Ribeiro MD, PhD s Cineradiography w/Routine Exam - Houston Ribeiro MD, PhD s IVUS Coronary Single Vessel - Houston Ribeiro MD, PhD s Drug Eluting Stent SGl Vessel - Houston Ribeiro MD, PhD Diagnostic Imagining Performed 05/03/25 10:35 CT for pulmonary embolism PE [CT angio chest PE protocol] Stat 05/03/25 11:45 CTA chest dissec wo/w con [CT angio chest dissec wo/w con] Stat 05/05/25 08:25 CL Cath Imgs for PACS use only Routine 05/05/25 11:14 CL IVUS Coronary Single Vessel Routine Pending Results Patient Have Any Pending Studies at Discharge: No Discharge Instructions Given to Patient (Per Discharging Provider) ACTIVITY RECOMMENDATIONS: It is common to feel weak and fatigue for a few days. * Do not drive or operate any motorized equipment for the next three days. * Limit stair usage (2 or 3 trips a day only) for the next three days. * Do not lift anything heavier than 10 pounds for the next three days. * Do not engage in vigorous exercise or any sports for the next five days. * You may shower the day after your procedure, but do not immerse the area for three days. Cleanse the site gently with soap and water. SPECIAL CARE INSTRUCTIONS: * You may replace the pressure dressing or band-aid the morning after the procedure. * After your procedure, it is normal to have a small bruise or small lump at the site. Examine your site daily for any change in the bruise or lump, redness, swelling, drainage or numbness. Notify your doctor if any change. BLEEDING: * If there is a small amount of bleeding at the site, lie down and apply firm pressure with a clean cloth for ten minutes. When the bleeding stops, lie quietly keeping the procedure limb straight for six hours. Notify your doctor as soon as possible. * If the bleeding does not stop after ten minutes or if there is a large amount of bleeding or spurting, call 911 immediately. Continue to lie down and hold firm pressure until help arrives. SKIN IRRITATION: * You may experience some redness and/or swelling in the area where radiation was administered. If any skin irritation occurs, please contact your family physician. FOLLOW UP VISIT: Keep any scheduled doctor appointments. Total Time Total Time Spent Total Time Spent (In Minutes): 35 minutes. Of this time period, 19 minutes were spent in coordinating patient's discharge. Coding Level of Care Code 51303 INP/OBS DISCH >30 MIN Diagnoses Chest pain, rule out acute myocardial infarction R07.9 History of myocardial infarction I25.2 Type 2 diabetes mellitus E11.9 Hereditary spherocytosis D58.0 History of splenectomy Z90.81
== END 2025-05-06 14:43 | disposition home or self-care (01) | DRG 321 ==
LOC: 2E 09:34 → ED 09:34 → SUATTDRO 13:13 → 2E 14:55
PROC: CLB.CCO (2025-05-05 10:00)